=== PATIENT | female | born 1955 | race Caucasian/White ===

== ENCOUNTER → 2016-12-17 | Outpatient (CLI) | payer BC ==
--- NOTE | 2016-12-17 11:53 | BD ---
EXAMINATION TYPE: MG DEXA axial skeleton. DATE OF EXAM: 12/17/2016 COMPARISON: NONE CLINICAL HISTORY: N95.1 POST MENOPAUSAL SYMPTOMS Height: 60.2 IN Weight: 142 LBS FRAX RISK QUESTIONS: Alcohol (3 or more units per day): NO Family History (Parent hip fracture): NO Glucocorticoids (More than 3mos): NO (Ex: prednisone, prednisolone, methylprednisolone, dexamethasone, and hydrocortisone). History of Fracture in Adulthood: NO Secondary Osteoporosis: 1. Type 1 Diabetes: NO 2. Hyperthyroidism: NO 3. Menopause before 45: NO AGE 51 4. Malnutrition: NO 5. Chronic liver disease: NO Rheumatoid Arthritis: NO Current Tobacco Use: NO RISK FACTORS HISTORY OF: Active: YES Diet low in dairy products/other sources of calcium: YES Postmenopausal woman: AGE 51 MEDICATIONS: Additional Medications: CALCIUM, VIT D,CITALOPRAM, NEXIUM, FISH OIL, ONE A DAY VIT, B12 EXAM MEASUREMENTS: Bone mineral densitometry was performed using the LoiLo System. Bone mineral density as measured about the Lumbar spine is: ----- L1-L4(G/cm2): 0.966 T Score Values are as follows: ----- L2: -1.6 ----- L3: -2.0 ----- L4: -1.8 ----- L1-L4: -1.8 Bone mineral density has: Decreased -14.3% since study of: 07/28/2006 Bone mineral density about the R hip (g/cm2): 0.867 Bone mineral density about the L hip (g/cm2): 0.869 T Score values are as follows: -----R Neck: -1.2 -----L Neck: -1.2 -----R Total: 0.2 -----L Total: 0.7 Bone mineral density has: Increased 1.3% since study of: IMPRESSION: Osteopenia about the lumbar spine. NOTE: T-SCORE=SD OF THE YOUNG ADULT MEAN.
== END | disposition home or self-care (01) ==
LOC: RADBDWWP 07:52
PROVIDERS: ATTEND Obstetrics & Gynecology
DX: M85.88 Other specified disorders of bone density and structure, other site (principal); N95.1 Menopausal and female climacteric states
CPT/HCPCS: 77080

== ENCOUNTER → 2017-02-11 | Outpatient (CLI) | payer BC | LOC: LABWHC1 14:38 | PROVIDERS: ATTEND Physician Assistant | DX: R07.9 Chest pain, unspecified (principal) | CPT/HCPCS: 36415; 93005 ==

== ENCOUNTER → 2018-01-08 | Outpatient (CLI) | payer OTHER ==
--- NOTE | 2018-01-08 22:20 | CONS ---
CONSULTATION DATE OF SERVICE: 01/08/2018 This patient is a 62-year-old lady who has been evaluated in [facility] for significant excessive daytime sleepiness, which include sleepiness while she drives. HISTORY OF PRESENT ILLNESS/SLEEP-WAKE EVALUATION: Patient reports she has had her sleepiness for about 10 years. At present her sleep schedule is from 10 or 11 p.m. until 6 or 7 a.m. on weekdays and from around 11 p.m. until 7 or 7:30 a.m. on weekends. Usually no problems with falling asleep, although she has a TV set in the bedroom. She sleeps on her side of stomach position with her , who reports that she has snoring. The patient wakes up from sleep with episodes of grinding teeth, nocturia 2 times, positive history of episodes of sleeptalking. In the morning patient wakes up tired, has difficulties paying attention, falling asleep during the day, has problems with memory, concentration, depression, claustrophobia. [place] Sleepiness Scale is significantly increased at 19. Sometimes the patient takes naps with her grandchildren. If she has takes a nap, she feels refreshed, does not remember vivid dreams during naps. No history of hypnagogic hallucinations, sleep paralysis or cataplexy. No kicking at night. PAST MEDICAL HISTORY: Positive for depression and low level of vitamin D. PAST SURGICAL HISTORY: Appendectomy, tubal ligation. MEDICATIONS: 1. Citalopram. 2. Esomeprazole. 3. Vitamin B12. 4. Vitamin D3. 5. Calcium supplement. 6. [place] fish probiotics. SOCIAL HISTORY: Negative for smoking. Alcohol consumption occasional. FAMILY HISTORY: Positive for narcolepsy in her son, heart problems, arthritis, snoring, pneumonia, headaches, mental illness, ulcers. REVIEW OF SYSTEMS: Awakenings from sleep, sleepiness during the day, including sleepiness while driving the car. PHYSICAL EXAMINATION: GENERAL: A pleasant 62-year-old lady without distress. VITAL SIGNS: BP 105/70, HR 71, RR 16, height 5-1/2, weight 145.2, body mass index 27.8, temperature 98.4, oxygen saturation at room air 94% HEENT: PERRLA, EOMI. Evaluation of oropharynx showed tongue protrudes midline. Extremely low position of soft palate. NECK: Supple. No JVD. Thyroid is not palpable. LUNGS: Clear to percussion and to auscultation. Good air exchange. No wheezing or rhonchi. HEART: S1, S2 regular. No murmurs, gallops or rubs. ABDOMEN: Slightly obese. EXTREMITIES: No clubbing or cyanosis. SPECIAL POLICE OFFICER: Awake, alert, and oriented X3. Cranial nerves 2 to 7 intact. There is no fasciculation or atrophy. noted. No focal deficits observed. IMPRESSION: 1. Snoring, multiple awakenings from sleep with nocturia, low position of soft palate, excessive daytime sleepiness; obstructive sleep apnea-hypopnea syndrome. 2. Significant excessive daytime sleepiness. [place] Sleepiness Scale is in very high range at 19. The patient feels sleepy while driving the car. She feels refreshed after naps. Differential diagnosis includes hypersomnia, including narcolepsy. 3. History of depression. 4. Status post appendectomy. 5. Status post tubal ligation. PLAN: 1. Polysomnography for evaluation of patient's breathing during sleep. 2. CPAP/BiPAP titration if sleep study confirms obstructive sleep apnea-hypopnea syndrome. 3. Preferable position during sleep on the side. 4. No driving if patient feels any sleepiness. 5. I will see patient for follow up visit to explain results of testing and following plan. 6. Multiple sleep latency test if sleep study is negative for obstructive sleep apnea- hypopnea syndrome. Thank you very much for referring this patient for consultation. Sincerely, Eliseo Euceda MD, PhD, FAASM Diplomat of [place] [employer] [place] [employer] Forming Roll Operator Heavy Duty of [facility] [place] MMODL / IJN: [id number] /
== END | disposition home or self-care (01) ==
LOC: SLEEP 14:18
PROVIDERS: ATTEND Internal Medicine
DX: G47.33 Obstructive sleep apnea (adult) (pediatric) (principal); F32.9 Major depressive disorder, single episode, unspecified; Z90.89 Acquired absence of other organs; Z98.890 Other specified postprocedural states; Z79.899 Other long term (current) drug therapy
CPT/HCPCS: 99211

== ENCOUNTER → 2018-03-11 | Outpatient (CLI) | payer OTHER ==
--- NOTE | 2018-03-11 15:38 | PN ---
PROGRESS NOTE DATE OF SERVICE: 03/11/2018 A 62-year-old lady who has been followed in the Sleep Center to discuss results of diagnostic sleep study and multiple sleep latency test and following plan. I discussed results of sleep studies with patient and family details. Diagnostic polysomnogram did not show any significant respiratory abnormalities. Following multiple sleep latency tests showed pathological sleepiness with a mean sleep latency of 3.4 minutes, but without any sleep onset REM period. Patient continued to feel sleepiness during the day, especially afternoon which may create risk for driving. Short [place] Sleepiness Scale today is 18 which is significantly above normal range. MEDICATIONS: Citalopram, esomeprazole, vitamin supplement, probiotics. PHYSICAL EXAM: Patient in no distress. BP 102/66, HR 65, RR 16, weight 146.2 pounds, height 5, 0, body mass index 28.5, oxygen saturation at room air 95%. HEENT PERRLA, EOMI, evaluation of oropharynx showed tongue protrudes midline. Neck Supple, no JVD. Thyroid is not palpable. LUNGS Clear to percussion and to auscultation. Good air exchange. No wheezing or rhonchi. HEART S1, S2 regular. No murmurs, gallops, or rubs. ABDOMEN Soft and nontender. Bowel sounds are present. No organomegaly appreciated. EXTREMITIES No clubbing or cyanosis. PEST CONTROL SUPERVISOR Awake, alert, and oriented X3. Cranial nerves 2 to 7 intact. There is no fasciculation or atrophy. noted. No focal deficits observed. IMPRESSION: 1. No significant respiratory abnormalities during sleep. 2. Patient continued to have symptoms of significant excessive daytime sleepiness. [place] Sleepiness Scale increased to 18. Multiple sleep latency test confirmed sleepiness. Mean sleep latency only 3.4 minutes. No sleep onset REM periods have been documented, but most probably diagnosis is narcolepsy. 3. History of depression. 4. Status post appendectomy. 5. Status post tubal ligation. PLAN: 1. I will start patient on treatment with Adderall 5 mg in the morning and early afternoon. Sleep hygiene with regular time in bed for at least 8 hours. 2. Precautions related to driving. No driving if feeling sleepiness. 3. Daytime naps permitted. 4. HLA profile for narcolepsy. Thank you very much for allowing me to participate in the management of your patient. Sincerely, Eliseo Euceda MD, PhD, FAASM Diplomat of [place] [employer] [place] [employer] Placement Manager of [facility] [place] MMODL / MARY LOUN: [id number] /
== END | disposition home or self-care (01) ==
LOC: SLEEP 13:37
PROVIDERS: ATTEND Internal Medicine
DX: G47.10 Hypersomnia, unspecified (principal); F32.9 Major depressive disorder, single episode, unspecified; Z90.89 Acquired absence of other organs; Z79.899 Other long term (current) drug therapy; Z98.890 Other specified postprocedural states

== ENCOUNTER → 2018-07-15 | Outpatient (CLI) | payer OTHER ==
--- NOTE | 2018-07-15 14:11 | MM ---
Reason for exam: screening (asymptomatic). Last mammogram was performed 2 years and 4 months ago. History: Patient is postmenopausal. Took hormonal contraceptives for 20 years. Physical Findings: A clinical breast exam by your physician is recommended on an annual basis and results should be correlated with mammographic findings. MG 3D Screening Mammo W/Cad Bilateral CC and MLO view(s) were taken. Prior study comparison: March 29, 2016, bilateral MG screening mammo w CAD. July 13, 2014, bilateral MG screening mammo w CAD. The breast tissue is heterogeneously dense. This may lower the sensitivity of mammography. There are benign appearing round vascular calcifications bilaterally. There is no discrete abnormality. ASSESSMENT: Benign, BI-RAD 2 RECOMMENDATION: Routine screening mammogram of both breasts in 1 year.
== END ==
LOC: RADMAMWWP 07:14
PROVIDERS: ATTEND Family Medicine
DX: Z12.31 Encounter for screening mammogram for malignant neoplasm of breast (principal)
CPT/HCPCS: 77063; 77067

== ENCOUNTER → 2018-12-30 | Outpatient (CLI) | payer OTHER ==
--- NOTE | 2018-12-30 07:54 | US ---
EXAMINATION TYPE: US pelvis complete transvag DATE OF EXAM: 12/30/2018 COMPARISON: NONE CLINICAL HISTORY: Rt lower Quad R10.31. Generalized pelvic pain. Hx ovarian cysts per patient when s he was younger. TECHNIQUE: Transvaginal (TV) and Transabdominal (TA) . Transabdominal sonographic images of the pel vis were acquired. Transvaginal sonographic images were medically necessary to better assess the fol lowing anatomy: Uterus, endometrium, ovaries Date of LMP: DATA WAREHOUSE DEVELOPER, EXAM MEASUREMENTS: Uterus: 5.0 x 2.9 x 2.3 cm Endometrial Stripe: 0.3 cm Right Ovary: 1.9 x 1.5 x 1.1 cm 1. Uterus: Anteverted Heterogenous. No prominent masses or lesions visualized. 2. Endometrium: wnl 3. Right Ovary: wnl 4. Left Ovary: Obscured by overlying bowel gas 5. Bilateral Adnexa: wnl 6. Posterior cul-de-sac: no free fluid IMPRESSION: No significant abnormality appreciated to account for the patient's symptoms.
== END | disposition home or self-care (01) ==
LOC: RADUSWWP 07:17
PROVIDERS: ATTEND Obstetrics & Gynecology
DX: R10.31 Right lower quadrant pain (principal)
CPT/HCPCS: 76830; 76856

== ENCOUNTER → 2019-03-17 | Outpatient (CLI) | payer OTHER ==
--- NOTE | 2019-03-17 08:28 | CT ---
EXAMINATION TYPE: CT brain wo con DATE OF EXAM: 03/17/2019 HISTORY: Headaches CT DLP: 999.8 mGycm. Automated Exposure Control for Dose Reduction was Utilized. TECHNIQUE: CT scan of the head is performed without contrast. COMPARISON: CT brain January 22, 2012.. FINDINGS: There is no acute intracranial hemorrhage or midline shift identified. Ventricles and sul ci are within normal limits in size for patient's age. Casas-white matter differentiation is fairly we ll-maintained. The globes are intact and the visualized sinuses are clear. IMPRESSION: No acute intracranial hemorrhage or midline shift. Unremarkable study.
== END | disposition home or self-care (01) ==
LOC: RADCTMAIN 07:54
PROVIDERS: ATTEND Family Medicine
DX: R51 Headache (principal)
CPT/HCPCS: 70450

== ENCOUNTER 2019-03-23 13:14 | Emergency (ER) | payer OTHER ==
[2019-03-23 13:33] VITALS: TEMP 98
[2019-03-23] MEDS ORDERED: SODIUM CHLORIDE 0.9% 1,000 ML IV STA (13:49)
[2019-03-23] MEDS ORDERED: diphenhydrAMINE 50 MG/ML 1 ML VIAL IVP STA (13:49)
[2019-03-23] MEDS ORDERED: METOCLOPRAMIDE 5 MG/ML 2 ML VIAL IVP STA (13:49)
[2019-03-23] MEDS ORDERED: MORPHINE SULFATE 4 MG/ML SYRINGE IV STA (13:49)
--- NOTE | 2019-03-23 14:30 | ED ---
Headache HPI - General Chief Complaint: Headache Stated Complaint: headache, neck pain Time Seen by Provider: 03/23/19 13:35 Source: RN notes reviewed, old records reviewed Mode of arrival: wheelchair Limitations: no limitations - History of Present Illness Initial Comments: Patient is a 63-year-old female presents today for chief complaint of neck pain and frequent headaches starting since January. She reports that she's been treated for migraine headaches. She does report some minimal relief when she has imitrex. She states that this pain seems to be unrelenting, despite tylenol, motrin and imitrex. She states she had a CAT scan without contrast earlier this month for her headache, as well as was only done of her brain. Patient states that it was reviewed to be normal. Patient reports that she's been having significant neck pain. She denies any radiation of pain or numbness or tingling down her arms. Patient states that she has a shooting pain going from the back of her head towards her scalp. She states that she went to orthopedics and had a massage of her neck. She states after that occurred she started to have some vomiting. She is placed in a soft collar there. - Related Data Home Medications Medication Instructions Recorded Confirmed Citalopram Hydrobromide 20 mg PO DAILY 07/23/14 06/12/15 [Citalopram HBr] Esomeprazole Magnesium [NexIUM] 40 mg PO BID 07/23/14 06/12/15 Aspirin [Adult Low Dose Aspirin EC] 81 mg PO Q2D 06/07/15 06/12/15 Calcium Carbonate [Calcium] 600 mg PO DAILY 06/07/15 06/12/15 Cholecalciferol [Vitamin D3] 1,000 unit PO DAILY 06/07/15 06/12/15 Multivitamins, Thera [Multivitamin] 1 tab PO DAILY 06/07/15 06/12/15 Previous Rx's Medication Instructions Recorded Acetaminophen with Codeine 1 tab PO Q6H PRN 3 Days #12 tab 03/23/19 [Tylenol w/codeine #3] Cyclobenzaprine [Flexeril] 10 mg PO TID #15 tab 03/23/19 Dexamethasone 0.75 mg PO DAILY #12 tab 03/23/19 Diazepam [Valium] 2 mg PO TID PRN 3 Days #9 tab 03/23/19 Allergies Allergy/AdvReac Type Severity Reaction Status Date / Time No Known Allergies Allergy Verified 06/12/15 12:51 Review of Systems ROS Statement: Those systems with pertinent positive or pertinent negative responses have been documented in the HPI. ROS Other: All systems not noted in ROS Statement are negative. Past Medical History Past Medical History: Chest Pain / Angina, GERD/Reflux, GI Bleed History of Any Multi-Drug Resistant Organisms: None Reported Past Surgical History: Tubal Ligation Past Anesthesia/Blood Transfusion Reactions: No Reported Reaction Past Psychological History: No Psychological Hx Reported Smoking Status: Never smoker Past Alcohol Use History: None Reported Past Drug Use History: None Reported - Past Family History Mother Additional Family Medical History / Comment(s): pulmonary fibrosis- Brother(s) Additional Family Medical History / Comment(s): pulmonary fibrosis with lung transplant General Exam - General Exam Comments Initial Comments: 63-year-old female. Alert and oriented 3. Limitations: no limitations General appearance: alert, in no apparent distress Head exam: Present: atraumatic, normocephalic, normal inspection Eye exam: Present: normal appearance, PERRL, EOMI. Absent: scleral icterus, conjunctival injection, periorbital swelling ENT exam: Present: normal exam, mucous membranes moist Neck exam: Present: normal inspection, full ROM (Patient has some posterior cervical spine tenderness to the occiput. Patient has right left paraspinal tenderness as well.). Absent: tenderness, meningismus, lymphadenopathy Respiratory exam: Present: normal lung sounds bilaterally. Absent: respiratory distress, wheezes, rales, rhonchi, stridor Cardiovascular Exam: Present: regular rate, normal rhythm, normal heart sounds. Absent: systolic murmur, diastolic murmur, rubs, gallop, clicks GI/Abdominal exam: Present: soft, normal bowel sounds. Absent: distended, tenderness, guarding, rebound, rigid Extremities exam: Present: normal inspection, full ROM, normal capillary refill. Absent: tenderness, pedal edema, joint swelling, calf tenderness Back exam: Present: normal inspection Neurological exam: Present: alert, oriented X3, CN II-XII intact Psychiatric exam: Present: normal affect, normal mood Skin exam: Present: warm, dry, intact, normal color. Absent: rash Course Vital Signs 03/23/19 03/23/19 13:30 15:32 Temperature 98.0 F Pulse Rate 85 71 Respiratory 18 16 Rate Blood Pressure 116/78 112/67 O2 Sat by Pulse 96 99 Oximetry Medical Decision Making - Medical Decision Making Patient 63-year-old female presents emergency department today with progressive headache and neck pain for the past month. Patient of fever or chills. Denies any neurological deficits. Patient reports that she did have a syncopal episode and vomited after a neck massage and physical therapy yesterday. Patient did have a CT of her brain earlier this month which was negative. Discussed at this time for concern for a pinched nerve or other etiologies of her brain. Patient underwent a CT angios head and neck. This was negative for aneurysm or dissection. Patient labwork was reviewed. Normal white blood cell count. Did have an elevated CRP likely due to inflammatory process muscle spasms. She is no fever at this time. Patient has no temporal tenderness and no visual changes. I discussed treatment at this time with telemetry medicine and muscle axis for likely pinched nerve and discussed she can follow-up with neurology. She has an appointment on April [address] Matos. Discussed case with Dr. Hassan. - Lab Data Result diagrams: 03/23/19 14:16 03/23/19 14:16 Lab Results 03/23/19 03/23/19 Range/Units 14:16 14:16 WBC 3.8 (3.8-10.6) k/uL RBC 3.09 L (3.80-5.40) m/uL Hgb 10.6 L (11.4-16.0) gm/dL Hct 30.3 L (34.0-46.0) % MCV 98.1 (80.0-100.0) fL MCH 34.3 (25.0-35.0) pg MCHC 35.0 (31.0-37.0) g/dL RDW 13.2 (11.5-15.5) % Plt Count 109 L (150-450) k/uL Neutrophils % (Manual) 47 % Band Neutrophils % 1 % Lymphocytes % (Manual) 23 % Monocytes % (Manual) 24 % Eosinophils % (Manual) 4 % Basophils % (Manual) 2 % Neutrophils # (Manual) 1.80 (1.3-7.7) k/uL Lymphocytes # (Manual) 0.87 L (1.0-4.8) k/uL Monocytes # (Manual) 0.91 (0-1.0) k/uL Eosinophils # (Manual) 0.15 (0-0.7) k/uL Basophils # (Manual) 0.08 (0-0.2) k/uL Nucleated RBCs 0 (0-0) /100 WBC Manual Slide Review Performed Sodium 138 (137-145) mmol/L Potassium 4.2 (3.5-5.1) mmol/L Chloride 102 (98-107) mmol/L Carbon Dioxide 28 (22-30) mmol/L Anion Gap 8 mmol/L BUN 14 (7-17) mg/dL Creatinine 0.66 (0.52-1.04) mg/dL Est GFR (CKD-EPI)AfAm >90 (>60 ml/min/1.73 sqM) Est GFR (CKD-EPI)NonAf >90 (>60 ml/min/1.73 sqM) Glucose 86 (74-99) mg/dL Calcium 9.2 (8.4-10.2) mg/dL Total Bilirubin 0.7 (0.2-1.3) mg/dL AST 31 (14-36) U/L ALT 25 (4-34) U/L Alkaline Phosphatase 83 (38-126) U/L C-Reactive Protein 152.7 H (<10.0) mg/L Total Protein 7.6 (6.3-8.2) g/dL Albumin 4.0 (3.5-5.0) g/dL - Radiology Data Radiology results: report reviewed Data CT angiogram of the neck. Negative CT angiogram of the brain. Disposition Clinical Impression: Neck muscle spasm, Headache Disposition: HOME SELF-CARE Condition: Good Instructions (If sedation given, give patient instructions): Muscle Spasm (ED) Additional Instructions: Patient advised to take the medications as prescribed. Follow-up with your primary care physician and neurology as discussed. Return to the emergency department if any alarming signs or symptoms occur such as decreased motor function of arms. Prescriptions: Dexamethasone 0.75 mg PO DAILY #12 tab Cyclobenzaprine [Flexeril] 10 mg PO TID #15 tab Acetaminophen with Codeine [Tylenol w/codeine #3] 1 tab PO Q6H PRN 3 Days #12 tab PRN Reason: Pain Diazepam [Valium] 2 mg PO TID PRN 3 Days #9 tab PRN Reason: Spasms Is patient prescribed a controlled substance at d/c from ED?: Yes If prescribed controlled substance>3 days was MAPS reviewed?: Prescribed <3 Days If opioid is for acute pain is fill amount 7 days or less?: Yes If Rx opioid, was Start Talking consent form obtained?: Yes Referrals: Mal Mendez DO [Primary Care Provider] - 1-2 days Time of Disposition: 16:17
[2019-03-23 14:31] LABS: HCT 30.3 % (34.0-46.0); HGB 10.6 gm/dL (11.4-16.0); MCH 34.3 pg (25.0-35.0); MCV 98.1 fL (80.0-100.0); Mean Platelet Volume 8.3; Platelet Count 109 k/uL (150-450); RBC 3.09 m/uL (3.80-5.40); RDW 13.2 % (11.5-15.5); WBC 3.8 k/uL (3.8-10.6)
[2019-03-23 14:45] LABS: ALT 25 U/L (4-34); AST 31 U/L (14-36); African American GFR (CKD) >90 (>60 ml/min/1.73 sqM); Alkaline Phosphatase 83 U/L (38-126); Anion Gap 8 mmol/L; Blood Urea Nitrogen 14 mg/dL (7-17); Calcium 9.2 mg/dL (8.4-10.2); Carbon Dioxide 28 mmol/L (22-30); Chloride 102 mmol/L (98-107); Glucose 86 mg/dL (74-99); Non-African American GFR(CKD) >90 (>60 ml/min/1.73 sqM); Potassium 4.2 mmol/L (3.5-5.1); Sodium 138 mmol/L (137-145); Total Bilirubin 0.7 mg/dL (0.2-1.3); Total Protein 7.6 g/dL (6.3-8.2)
[2019-03-23 15:00] LABS: C Reactive Protein 152.7 mg/L (<10.0)
[2019-03-23 15:10] LABS: Band Neutrophils % 1 %; Basophils # (M) 0.08 k/uL (0-0.2); Eosinophils # (M) 0.15 k/uL (0-0.7); Lymphocytes # (M) 0.87 k/uL (1.0-4.8); Monocytes # (M) 0.91 k/uL (0-1.0); Neutrophils % (M) 47 %; Nucleated Red Blood Cells 0 /100 WBC (0-0); Total Cells Counted 200
[2019-03-23 15:43] VITALS: RESP 16
--- NOTE | 2019-03-23 15:56 | CT ---
EXAMINATION TYPE: CT angio head neck DATE OF EXAM: 03/23/2019 COMPARISON: None HISTORY: Neck pain and headache x 1 month, getting progressively worse. CT DLP: 1480.2 mGycm Automated exposure control for dose reduction was used. CONTRAST: Performed without and with IV Contrast, patient injected with 65 mL of Isovue 370. There are 3-D post processed images. Noncontrast images show normal ventricles and sulci. There is minimal thalamic calcification. There i s no midline shift. There is no sign of intracranial hemorrhage. There is normal branching pattern of the great vessels on the aortic arch. There is bilateral arteria l flow in the subclavian arteries. There is arterial flow in the common internal and external carotid arteries bilaterally. There is wide patency of the carotid arteries. There is bilateral arterial kojo w in the vertebral arteries which are widely patent. There is arterial flow in the anterior middle and posterior cerebral arteries. There is no evidence o f intracranial aneurysm or neovascularity. There is no evidence of hemodynamic stenosis. There is art erial flow in the vertebrobasilar artery system. There is normal contrast opacification of the venous sinuses. There is no mass effect. IMPRESSION: Negative CT angiogram of the neck. Negative CT angiogram of the brain.
[2019-03-23] MEDS ORDERED: DEXAMETHASONE SOD PHOSPHATE 10 MG/ML 1 ML VIAL IV STA (16:08)
[2019-03-23] MEDS ORDERED: DIAZEPAM 5 MG/ML 2 ML INJ IVP STA (16:08)
[2019-03-23 17:10] VITALS: BP 117/71; PULSE 70
== END 2019-03-23 17:09 | disposition home or self-care (01) ==
LOC: EC 13:14
DX: M62.838 Other muscle spasm (principal); R51 Headache; R11.10 Vomiting, unspecified; R79.82 Elevated C-reactive protein (CRP); K21.9 Gastro-esophageal reflux disease without esophagitis; Z79.82 Long term (current) use of aspirin; Z79.899 Other long term (current) drug therapy
CPT/HCPCS: 36415; 93005; 80053; 85025; 86140; 70496; 70498; 99285; 96374; 96375 ×4; 96361; J2270; J1200; J1100; J2765; J3360; Q9967

== ENCOUNTER → 2019-03-29 | Outpatient (CLI) | payer OTHER ==
--- NOTE | 2019-03-29 15:46 | US ---
EXAMINATION TYPE: US venous doppler duplex UE LT DATE OF EXAM: 03/29/2019 COMPARISON: NONE CLINICAL HISTORY: M79.602 pain in upper left limb. pain left arm, recent IV left antecubital fossa, r edness and edema left upper arm SIDE PERFORMED: left Left Arm: No evidence of DVT. Superficial thrombus left cephalic vein Grayscale, color doppler, spectral doppler imaging performed of the deep veins of the left upper extr emity. There is normal flow, compressibility and vascular waveforms. IMPRESSION: No acute DVT left upper extremity. Acute superficial thrombus involving the left cephalic vein may be product of recent peripheral IV.
== END | disposition home or self-care (01) ==
LOC: LABWHC1 15:02
PROVIDERS: ATTEND Family Medicine
DX: I82.612 Acute embolism and thrombosis of superficial veins of left upper extremity (principal)

== ENCOUNTER 2019-04-01 14:01 | Emergency (ER) | payer OTHER ==
[2019-04-01] MEDS ORDERED: ACETAMINOPHEN TAB 325 MG TAB PO STA (16:11)
[2019-04-01 16:51] LABS: Appearance,Urine Clear (Clear); Bilirubin,Urine Negative (Negative); Blood,Urine Negative (Negative); Color,Urine Yellow; Glucose,Urine (UA) Negative (Negative); Ketones,Urine Negative (Negative); Leukocyte Esterase,Urine Negative (Negative); Nitrite,Urine Negative (Negative); Protein,Urine Trace (Negative); Specific Gravity,Urine 1.012 (1.001-1.035)
--- NOTE | 2019-04-01 16:54 | XR ---
EXAMINATION TYPE: XR knee 4V LT DATE OF EXAM: 04/01/2019 COMPARISON: NONE HISTORY: Knee pain and swelling TECHNIQUE: 4 views FINDINGS: There is some narrowing of the medial joint space. I see no fracture nor dislocation. There is no definite joint effusion. There is anterior soft tissue swelling. IMPRESSION: Mild narrowing of the medial joint space. No fracture seen. There is prepatellar soft tissue swelling consistent with patellar bursitis.
[2019-04-01 17:06] VITALS: BP 107/67; PULSE 94; RESP 18; TEMP 99.4
[2019-04-01 17:27] LABS: ALT 67 U/L (4-34); AST 57 U/L (14-36); African American GFR (CKD) >90 (>60 ml/min/1.73 sqM); Albumin 3.6 g/dL (3.5-5.0); Alkaline Phosphatase 130 U/L (38-126); Anion Gap 8 mmol/L; Blood Urea Nitrogen 12 mg/dL (7-17); Calcium 8.9 mg/dL (8.4-10.2); Carbon Dioxide 25 mmol/L (22-30); Chloride 101 mmol/L (98-107); Glucose 124 mg/dL (74-99); Non-African American GFR(CKD) >90 (>60 ml/min/1.73 sqM); Potassium 4.2 mmol/L (3.5-5.1); Sodium 134 mmol/L (137-145); Total Bilirubin 0.6 mg/dL (0.2-1.3)
[2019-04-01 17:39] LABS: C Reactive Protein 234.1 mg/L (<10.0)
[2019-04-01 17:41] LABS: HCT 28.1 % (34.0-46.0); HGB 9.7 gm/dL (11.4-16.0); MCH 34.3 pg (25.0-35.0); MCHC 34.6 g/dL (31.0-37.0); MCV 99.1 fL (80.0-100.0); Macrocytosis Slight; Mean Platelet Volume 8.8; Platelet Count 88 k/uL (150-450); RBC 2.84 m/uL (3.80-5.40); RDW 14.1 % (11.5-15.5); WBC 5.1 k/uL (3.8-10.6)
[2019-04-01 17:56] LABS: Band Neutrophils % 1 %; Lymphocytes # (M) 0.77 k/uL (1.0-4.8); Monocytes # (M) 0.77 k/uL (0-1.0); Neutrophils % (M) 63 %; Nucleated Red Blood Cells 0 /100 WBC (0-0); Poikilocytosis (M) Present; Reactive Lymphocytes Present; Total Cells Counted 100; Toxic Vacuolation Present
[2019-04-01 18:23] LABS: Erythrocyte Sedimentation Rate 119 mm/hr (0-20)
[2019-04-01] MEDS ORDERED: SULFAMETH-TMP DS STARTER PACK 2 TAB BTL PO STA (18:58)
[2019-04-01] MEDS ORDERED: SULFAMETHOX-TMP 800-160MG 1 EACH TAB PO STA (18:58)
--- NOTE | 2019-04-01 19:16 | ED ---
General Adult HPI - General Chief complaint: Extremity Problem,Nontraumatic Stated complaint: poss sepsis Time Seen by Provider: 04/01/19 15:18 Source: patient, RN notes reviewed, old records reviewed Mode of arrival: ambulatory Limitations: no limitations - History of Present Illness Initial comments: 63-year-old female patient presents to ED for chief complaint of pain for left knee for 2 days. Patient reports that she has pain in the anterior aspect of her left knee. Also reports some redness and swelling at this region. Describes it as around the patella. Reports that she felt as if she was slightly warm earlier. Denies any other systemic symptoms. Patient is still ambulatory. Able to bear weight. Systemic: Pt denies fatigue, fever/chills, rash. Pt denies weakness, night sweats, weight loss. Neuro: Pt denies headache, visual disturbances, syncope or pre-syncope. HEENT: Pt denies ocular discharge or irritation, otalgia, rhinorrhea, pharyngitis or notable lymphadenopathy. Cardiopulmonary: Pt denies chest pain, SOB, heart palpitations, dyspnea on exertion. Abdominal/GI: Pt denies abdominal pain, n/v/d. : Pt denies dysuria, burning w/ urination, frequency/urgency. Denies new onset urinary or bowel incontinence. MSK: Pt denies myalgia, loss of strength or function in extremities. Neuro: Pt denies new onset weakness, paresthesias. - Related Data Home Medications Medication Instructions Recorded Confirmed Citalopram Hydrobromide 20 mg PO DAILY 07/23/14 06/12/15 [Citalopram HBr] Esomeprazole Magnesium [NexIUM] 40 mg PO BID 07/23/14 06/12/15 Aspirin [Adult Low Dose Aspirin EC] 81 mg PO Q2D 06/07/15 06/12/15 Calcium Carbonate [Calcium] 600 mg PO DAILY 06/07/15 06/12/15 Cholecalciferol [Vitamin D3] 1,000 unit PO DAILY 06/07/15 06/12/15 Multivitamins, Thera [Multivitamin] 1 tab PO DAILY 06/07/15 06/12/15 Previous Rx's Medication Instructions Recorded Acetaminophen with Codeine 1 tab PO Q6H PRN 3 Days #12 tab 03/23/19 [Tylenol w/codeine #3] Cyclobenzaprine [Flexeril] 10 mg PO TID #15 tab 03/23/19 Dexamethasone 0.75 mg PO DAILY #12 tab 03/23/19 Diazepam [Valium] 2 mg PO TID PRN 3 Days #9 tab 03/23/19 Sulfamethox-Tmp 800-160Mg [Bactrim 1 tab PO Q12HR 14 Days #28 tab 04/01/19 DS 800-160 mg] Allergies Allergy/AdvReac Type Severity Reaction Status Date / Time No Known Allergies Allergy Verified 06/12/15 12:51 Review of Systems ROS Statement: Those systems with pertinent positive or pertinent negative responses have been documented in the HPI. ROS Other: All systems not noted in ROS Statement are negative. Past Medical History Past Medical History: Chest Pain / Angina, GERD/Reflux, GI Bleed History of Any Multi-Drug Resistant Organisms: None Reported Past Surgical History: Tubal Ligation Past Anesthesia/Blood Transfusion Reactions: No Reported Reaction Past Psychological History: No Psychological Hx Reported Smoking Status: Never smoker Past Alcohol Use History: None Reported Past Drug Use History: None Reported - Past Family History Mother Additional Family Medical History / Comment(s): pulmonary fibrosis- Brother(s) Additional Family Medical History / Comment(s): pulmonary fibrosis with lung transplant General Exam - General Exam Comments Initial Comments: Constitutional: NAD, AOX3, Pt has pleasant affect. HEENT: NC/AT, trachea midline, neck supple, no lymphadenopathy. Posterior phar ynx non erythematous, without exudates. External ears appear normal, without discharge. Mucous membranes moist. Eyes PERRLA, EOM intact. There is no scleral icterus. No pallor noted. Cardiopulmonary: RRR, no murmurs, rubs or gallops, no JVD noted. Lungs CTAB in anterior and posterior brady. No peripheral edema. Abdominal exam: Abdomen soft and non-distended. Abdomen non-tender to palpation in all 4 quadrants. Bowel sounds active in LLQ. No hepatosplenomegaly. No ecchymosis Neuro: CN II-XII grossly intact. No nuchal rigidity. No raccon eyes, no jimenez sign, no hemotympanum. No cervical spinal tenderness. MSK: Small amount of erythema tenderness to anterior left knee patellar region. Full active range of motion is intact without difficulty. Ambulatory without difficulty. No posterior calf tenderness bilaterally, homans sign negative bilaterally. Posterior tibialis and radial pulse +2 bilaterally. Sensation intact in upper and lower extremities. Full active ROM in upper and lower e xtremities, 5/5 stregnth. Limitations: no limitations Course Vital Signs 04/01/19 04/01/19 04/01/19 14:13 17:04 19:08 Temperature 100.4 F H 99.4 F 99.4 F Pulse Rate 98 94 94 Respiratory 19 18 18 Rate Blood Pressure 108/69 107/67 107/67 O2 Sat by Pulse 98 95 95 Oximetry Medical Decision Making - Medical Decision Making 63-year-old female patient presents to ED for chief complaint of left knee pain and redness and swelling for 2 days. Patient vital signs are stable, afebrile. Physical exam displayed: Small amount of erythema tenderness to anterior left knee patellar region. Full active range of motion is intact without difficulty. Ambulatory without difficulty. Laboratory investigations revealed mild anemia and decreased platelets which are around baseline. No leukocytosis. Inflammatory mediators are elevated. Previous laboratory investigations reveal a possible baseline elevation. Urine and influenza are negative. Plain film of the knee displayed mild prepatellar soft tissue swelling consistent with p atellar bursitis. Case was discussed with orthopedic on-call Dr. Andre laboratory investigations and imaging findings who presents to him, he believes that this is a case of bursitis. Believes that is likely not infectious in nature however recommend using Bactrim prophylactically. Case was also discussed attending physician Dr. Lee who is in agreement with plan and reviewed imaging and laboratory investigations. Patient will be discharged with close observation follow-up with Dr. Fisher and PCP. - Lab Data Result diagrams: 04/01/19 17:05 04/01/19 17:05 Lab Results 04/01/19 04/01/19 04/01/19 Range/Units 16:29 16:40 17:05 WBC 5.1 (3.8-10.6) k/uL RBC 2.84 L (3.80-5.40) m/uL Hgb 9.7 L (11.4-16.0) gm/dL Hct 28.1 L (34.0-46.0) % MCV 99.1 (80.0-100.0) fL MCH 34.3 (25.0-35.0) pg MCHC 34.6 (31.0-37.0) g/dL RDW 14.1 (11.5-15.5) % Plt Count 88 L (150-450) k/uL Neutrophils % (Manual) 63 % Band Neutrophils % 1 % Lymphocytes % (Manual) 15 % Monocytes % (Manual) 15 % Eosinophils % (Manual) 4 % Basophils % (Manual) 2 % Neutrophils # (Manual) 3.20 (1.3-7.7) k/uL Lymphocytes # (Manual) 0.77 L (1.0-4.8) k/uL Monocytes # (Manual) 0.77 (0-1.0) k/uL Eosinophils # (Manual) 0.20 (0-0.7) k/uL Basophils # (Manual) 0.10 (0-0.2) k/uL Nucleated RBCs 0 (0-0) /100 WBC Manual Slide Review Performed Reactive Lymphocytes Present Toxic Vacuolation Present Poikilocytosis (manual Present Macrocytosis Slight ESR 119 H (0-20) mm/hr Sodium (137-145) mmol/L Potassium (3.5-5.1) mmol/L Chloride (98-107) mmol/L Carbon Dioxide (22-30) mmol/L Anion Gap mmol/L BUN (7-17) mg/dL Creatinine (0.52-1.04) mg/dL Est GFR (CKD-EPI)AfAm (>60 ml/min/1.73 sqM) Est GFR (CKD-EPI)NonAf (>60 ml/min/1.73 sqM) Glucose (74-99) mg/dL Plasma Lactic Acid Erasmo (0.7-2.0) mmol/L Calcium (8.4-10.2) mg/dL Total Bilirubin (0.2-1.3) mg/dL AST (14-36) U/L ALT (4-34) U/L Alkaline Phosphatase (38-126) U/L C-Reactive Protein (<10.0) mg/L Total Protein (6.3-8.2) g/dL Albumin (3.5-5.0) g/dL Urine Color Yellow Urine Appearance Clear (Clear) Urine pH 6.0 (5.0-8.0) Ur Specific [place] 1.012 (1.001-1.035) Urine Protein Trace H (Negative) Urine Glucose (UA) Negative (Negative) Urine Ketones Negative (Negative) Urine Blood Negative (Negative) Urine Nitrite Negative (Negative) Urine Bilirubin Negative (Negative) Urine Urobilinogen 2.0 (<2.0) mg/dL Ur Leukocyte Esterase Negative (Negative) Influenza Type A RNA Not Detected (Not Detectd) Influenza Type B (PCR) Not Detected (Not Detectd) 04/01/19 04/01/19 Range/Units 17:05 17:05 WBC (3.8-10.6) k/uL RBC (3.80-5.40) m/uL Hgb (11.4-16.0) gm/dL Hct (34.0-46.0) % MCV (80.0-100.0) fL MCH (25.0-35.0) pg MCHC (31.0-37.0) g/dL RDW (11.5-15.5) % Plt Count (150-450) k/uL Neutrophils % (Manual) % Band Neutrophils % % Lymphocytes % (Manual) % Monocytes % (Manual) % Eosinophils % (Manual) % Basophils % (Manual) % Neutrophils # (Manual) (1.3-7.7) k/uL Lymphocytes # (Manual) (1.0-4.8) k/uL Monocytes # (Manual) (0-1.0) k/uL Eosinophils # (Manual) (0-0.7) k/uL Basophils # (Manual) (0-0.2) k/uL Nucleated RBCs (0-0) /100 WBC Manual Slide Review Reactive Lymphocytes Toxic Vacuolation Poikilocytosis (manual Macrocytosis ESR (0-20) mm/hr Sodium 134 L (137-145) mmol/L Potassium 4.2 (3.5-5.1) mmol/L Chloride 101 (98-107) mmol/L Carbon Dioxide 25 (22-30) mmol/L Anion Gap 8 mmol/L BUN 12 (7-17) mg/dL Creatinine 0.66 (0.52-1.04) mg/dL Est GFR (CKD-EPI)AfAm >90 (>60 ml/min/1.73 sqM) Est GFR (CKD-EPI)NonAf >90 (>60 ml/min/1.73 sqM) Glucose 124 H (74-99) mg/dL Plasma Lactic Acid Erasmo 1.1 (0.7-2.0) mmol/L Calcium 8.9 (8.4-10.2) mg/dL Total Bilirubin 0.6 (0.2-1.3) mg/dL AST 57 H (14-36) U/L ALT 67 H (4-34) U/L Alkaline Phosphatase 130 H (38-126) U/L C-Reactive Protein 234.1 H (<10.0) mg/L Total Protein 7.0 (6.3-8.2) g/dL Albumin 3.6 (3.5-5.0) g/dL Urine Color Urine Appearance (Clear) Urine pH (5.0-8.0) Ur Specific [place] (1.001-1.035) Urine Protein (Negative) Urine Glucose (UA) (Negative) Urine Ketones (Negative) Urine Blood (Negative) Urine Nitrite (Negative) Urine Bilirubin (Negative) Urine Urobilinogen (<2.0) mg/dL Ur Leukocyte Esterase (Negative) Influenza Type A RNA (Not Detectd) Influenza Type B (PCR) (Not Detectd) Disposition Clinical Impression: Bursitis Disposition: HOME SELF-CARE Condition: Stable Instructions (If sedation given, give patient instructions): Knee Bursitis (ED) Additional Instructions: Taken antibiotics as directed. Follow-up with orthopedic consult primary care provider tomorrow. Return to ER if condition worsens in any way. Use ibuprofen 600 mg 3 times per day every 8 hours as needed. Prescriptions: Sulfamethox-Tmp 800-160Mg [Bactrim DS 800-160 mg] 1 tab PO Q12HR 14 Days #28 tab Is patient prescribed a controlled substance at d/c from ED?: No Referrals: Mal Mendez DO [Primary Care Provider] - 1-2 days Jayy Fisher DO [Medical Doctor] - 1-2 days
== END 2019-04-01 19:35 | disposition home or self-care (01) ==
LOC: EC 14:01
DX: M70.52 Other bursitis of knee, left knee (principal); D64.9 Anemia, unspecified; D69.6 Thrombocytopenia, unspecified; I20.9 Angina pectoris, unspecified; K21.9 Gastro-esophageal reflux disease without esophagitis; Z79.82 Long term (current) use of aspirin; Z79.899 Other long term (current) drug therapy
CPT/HCPCS: 36415; 80053; 85652; 83605; 85025; 86140; 81003; 87040; 87502; 73564; 99284; 96374; J0696

== ENCOUNTER → 2019-04-05 | Outpatient (CLI) | payer OTHER ==
--- NOTE | 2019-04-05 14:13 | US ---
EXAMINATION TYPE: US venous doppler duplex LE LT DATE OF EXAM: 04/05/2019 2:03 PM COMPARISON: NONE CLINICAL HISTORY: R60.0 EDEMA. SIDE PERFORMED: Left TECHNIQUE: The lower extremity deep venous system is examined utilizing real time linear array sonog ivri with graded compression, doppler sonography and color-flow sonography. VESSELS IMAGED: External Iliac Vein (EIV) Common Femoral Vein Deep Femoral Vein Greater Saphenous Vein * Femoral Vein Popliteal Vein Small Saphenous Vein * Proximal Calf Veins (* superficial vessels) Grayscale, color doppler, spectral doppler imaging performed of the deep veins of the left lower extr emity. There is normal flow, compressibility, vascular waveforms. Left Leg: Negative for DVT IMPRESSION: No sonographic evidence of deep venous thrombosis within the visualized portions of the left lower extremity.
== END | disposition home or self-care (01) ==
LOC: RADUSWWP 13:39
PROVIDERS: ATTEND Family Medicine
DX: R60.0 Localized edema (principal)

== ENCOUNTER → 2019-04-06 | Outpatient (CLI) | payer OTHER ==
[2019-04-06 11:39] LABS: Basophils # (A) 0.1 k/uL (0-0.2); Basophils % (A) 1 %; Eosinophils # (A) 0.2 k/uL (0-0.7); Eosinophils % (A) 3 %; HCT 26.2 % (34.0-46.0); HGB 8.7 gm/dL (11.4-16.0); Lymphocytes # (A) 0.8 k/uL (1.0-4.8); Lymphocytes % (A) 18 %; MCH 34.5 pg (25.0-35.0); MCHC 33.2 g/dL (31.0-37.0); MCV 103.8 fL (80.0-100.0); Macrocytosis Slight; Mean Platelet Volume 8.4; Monocytes # (A) 0.2 k/uL (0-1.0); Monocytes % (A) 5 %; Neutrophils # (A) 2.2 k/uL (1.3-7.7); Neutrophils % (A) 49 %; RBC 2.52 m/uL (3.80-5.40); RDW 14.2 % (11.5-15.5); WBC 4.5 k/uL (3.8-10.6)
[2019-04-06 11:40] LABS: Platelet Count 91 k/uL (150-450)
[2019-04-06 14:34] LABS: Erythrocyte Sedimentation Rate 129 mm/hr (0-20)
[2019-04-06 15:59] LABS: Uric Acid 3.3 mg/dL (2.9-7.7)
[2019-04-06 16:00] LABS: African American GFR (CKD) 92.2 (60.0-200.0); Anion Gap 7.6 mmol/L (4.00-12.00); BUN/Creat Ratio 17.5 Ratio (12.00-20.00); Calcium 8.8 mg/dL (8.7-10.3); Carbon Dioxide 28.4 mmol/L (21.6-31.8); Non-African American GFR(CKD) 79.6 (60.0-200.0); Potassium 4.3 mmol/L (3.5-5.5)
[2019-04-06 19:58] LABS: Cyclic Citrull Pep IgG Unit <0.5 U/mL; Cyclic Citrullinated Pep IgG NEGATIVE (NEGATIVE)
[2019-04-07 09:56] LABS: Angiotensin-1 Converting Enz. 46 U/L (8-52)
[2019-04-07 12:33] LABS: HLA B27 NEGATIVE
== END ==
LOC: LABWHC1 09:50
PROVIDERS: ATTEND Orthopaedic Surgery
DX: M25.562 Pain in left knee (principal); M17.12 Unilateral primary osteoarthritis, left knee; M54.5 Low back pain; M54.32 Sciatica, left side; M25.571 Pain in right ankle and joints of right foot
CPT/HCPCS: 36415; 80048; 82164; 82306; 82550; 83520; 84439; 84443; 84450; 84460; 84550; 85025; 85652; 86038; 86140; 86200; 86431; 86812

== ENCOUNTER 2019-04-22 06:21 | Inpatient (IN) | payer OTHER ==
[2019-04-22] MEDS ORDERED: NITROGLYCERIN OINT 1 INCH/GM PACKET TOPICAL STA (06:39)
[2019-04-22 06:45] LABS: Anisocytosis Slight; HCT 22.3 % (34.0-46.0); HGB 7.5 gm/dL (11.4-16.0); MCH 35.2 pg (25.0-35.0); MCHC 33.4 g/dL (31.0-37.0); MCV 105.2 fL (80.0-100.0); Macrocytosis Moderate; Mean Platelet Volume 8.9; RBC 2.12 m/uL (3.80-5.40); RDW 16.7 % (11.5-15.5); WBC 6.1 k/uL (3.8-10.6)
[2019-04-22 06:49] LABS: Platelet Count 41 k/uL (150-450)
[2019-04-22 06:56] LABS: ALT 17 U/L (4-34); AST 19 U/L (14-36); African American GFR (CKD) >90 (>60 ml/min/1.73 sqM); Albumin 2.9 g/dL (3.5-5.0); Alkaline Phosphatase 55 U/L (38-126); Anion Gap 4 mmol/L; Blood Urea Nitrogen 17 mg/dL (7-17); Calcium 8.8 mg/dL (8.4-10.2); Carbon Dioxide 34 mmol/L (22-30); Chloride 101 mmol/L (98-107); Glucose 77 mg/dL (74-99); Magnesium 2.2 mg/dL (1.6-2.3); Non-African American GFR(CKD) >90 (>60 ml/min/1.73 sqM); Potassium 3.9 mmol/L (3.5-5.1); Sodium 139 mmol/L (137-145); Total Bilirubin 0.4 mg/dL (0.2-1.3)
[2019-04-22 06:59] LABS: INR 0.9 (<1.2)
[2019-04-22 07:00] LABS: Prothrombin Time 9.6 sec (9.0-12.0)
[2019-04-22 07:01] LABS: D-Dimer 2.06 mg/L FEU (<0.60); Partial Thromboplastin Time 19.7 sec (22.0-30.0)
--- NOTE | 2019-04-22 07:04 | XR ---
EXAMINATION TYPE: XR chest 2V DATE OF EXAM: 04/22/2019 COMPARISON: Prior chest x-ray 07/13/2014 HISTORY: Chest pain TECHNIQUE: Frontal and lateral views of the chest are obtained. FINDINGS: Heart size may be accentuated by rotation. No evident pneumothorax or pleural effusion. Pe rihilar vascular indistinctness is noted. Lung volumes are low. Some patchy basilar density suspected . IMPRESSION: Expiratory rotated exam. Difficult to exclude interstitial edema, basilar atelectasis ve rsus possibly developing airspace disease. Follow-up as indicated.
--- NOTE | 2019-04-22 07:19 | ED ---
Chest Pain HPI - General Source: patient, EMS Mode of arrival: EMS Limitations: no limitations <Yessi Clinton - Last Filed: 04/22/19 14:27> <Cassandra Islas - Last Filed: 04/30/19 13:00> - General Chief Complaint: Chest Pain Stated Complaint: chest pain Time Seen by Provider: 04/22/19 06:22 - History of Present Illness Initial Comments: 63-year-old female presenting today for chief complaint of pain in the center of her chest x 2 hours. Patient states has history of rheumatoid arthritis otherwise no significant past medical history however the rheumatoid arthritis has significantly decreased her mobility. Patient states that she woke this morning with sharp chest pain, without radiation of the epigastric/sternal region. Patient states she has had for months on and off right knee and left foot swelling-which was attributed to the RA. Patient denies any known history of DVT or pulmonary embolism. Denies hemoptysis, nausea, vomiting, abdominal pain, fever, cough, URI symptoms, denies ripping tearing or back pain, denies dizziness or syncope. Patient denies any other complaints at this time. Patient was concerned when pain persisted and called EMS for transfer to the ER. Upon arrival BP stable, HR within acceptable limits. Patient states that she does have dark stools, and has been constipated. (Yessi Clniton) - Related Data Home Medications Medication Instructions Recorded Confirmed Citalopram Hydrobromide 20 mg PO DAILY 07/23/14 04/22/19 [Citalopram HBr] Esomeprazole Magnesium [NexIUM] 40 mg PO BID 07/23/14 04/22/19 Multivitamins, Thera [Multivitamin] 1 tab PO DAILY 06/07/15 04/22/19 Ascorbic Acid [Vitamin C] 1,000 mg PO DAILY 04/22/19 04/22/19 Calcium Carbonate/Vitamin D3 2 tab PO DAILY 04/22/19 04/22/19 [Calcium 600-Vit D3 800 [place]] Clobetasol Propionate [Temovate 1 applic TOPICAL BID PRN 04/22/19 04/22/19 0.05% Cream] Dextroamphetamine/Amphetamine 5 mg PO DAILY 04/22/19 04/22/19 [Adderall] Hydrocodone/Acetaminophen [[place] 1 tab PO TID PRN 04/22/19 04/22/19 7.5-325] Niacin 500 mg PO HS 04/22/19 04/22/19 [place]-3 Fatty Acids [[place]-3] 1,000 mg PO DAILY 04/22/19 04/22/19 Probiotic W/ Fiber 1 tab PO DAILY 04/22/19 04/22/19 Super B Complex W/ Biotin 1 tab PO DAILY 04/22/19 04/22/19 Triamcinolone 0.1% Cream [Kenalog 1 applic TOPICAL BID PRN 04/22/19 04/22/19 0.1% Cream] predniSONE [Deltasone] 20 mg PO HS 04/22/19 04/22/19 predniSONE [Deltasone] 40 mg PO QAM 04/22/19 04/22/19 Allergies Allergy/AdvReac Type Severity Reaction Status Date / Time No Known Allergies Allergy Verified 04/22/19 08:18 Review of Systems ROS Other: All systems not noted in ROS Statement are negative. <Yessi Clinton - Last Filed: 04/22/19 14:27> ROS Other: All systems not noted in ROS Statement are negative. <Cassandra Islas - Last Filed: 04/30/19 13:00> ROS Statement: Those systems with pertinent positive or pertinent negative responses have been documented in the HPI. EKG Findings - EKG Comments: EKG Findings:: Ventricular rate 75 bpm, ID interval 140 ms, QRS duration 80 ms, QT/QTC 390/444 ms. This is normal sinus. There is no ST elevation or depression noted. Low voltage is noted. EKG reviewd by attending Dr. Carr <Yessi Clinton - Last Filed: 04/22/19 14:27> Past Medical History Past Medical History: Chest Pain / Angina, GERD/Reflux, GI Bleed History of Any Multi-Drug Resistant Organisms: None Reported Past Surgical History: Tubal Ligation Past Anesthesia/Blood Transfusion Reactions: No Reported Reaction Past Psychological History: No Psychological Hx Reported Smoking Status: Never smoker Past Alcohol Use History: None Reported Past Drug Use History: None Reported - Past Family History Mother Additional Family Medical History / Comment(s): pulmonary fibrosis- Brother(s) Additional Family Medical History / Comment(s): pulmonary fibrosis with lung transplant Father Family Medical History: Dementia <Yessi Clinton - Last Filed: 04/22/19 14:27> General Exam Limitations: no limitations <Yessi Clinton - Last Filed: 04/22/19 14:27> - General Exam Comments Initial Comments: General: The patient is awake and alert, in no distress, appears pale Eye: +3 mm pupils are equal, round and reactive to light, extra-ocular movements are intact. No nystagmus. There is normal conjunctiva bilaterally. No signs of icterus. Ears, nose, mouth and throat: There are moist mucous membranes and no oral lesions. Neck: The neck is supple, there is no tenderness or JVD. Cardiovascular: There is a regular rate and rhythm. No murmur, rub or gallop is appreciated. Respiratory: Lungs are clear to auscultation, respirations are non-labored, breath sounds are equal. No wheezes, stridor, rales, or rhonchi. Gastrointestinal: Soft, non-distended, non-tender abdomen without masses or organomegaly noted. There is no rebound or guarding present. Musculoskeletal: Normal ROM, no tenderness. Strength 5/5. Sensation intact. Radial and DP pulses equal bilaterally 2+. Neurological: A&O x 3. CN II-XII intact grossly, There are no obvious motor or sensory deficits. Coordination appears grossly intact. Speech is normal. Skin: Skin is warm and dry and no rashes or lesions are noted. No LE edema noted. No calf pain to palpation. Psychiatric: Cooperative, appropriate mood & affect, normal judgment. (Yessi Clinton) Course Vital Signs 04/22/19 04/22/19 04/22/19 06:22 08:09 08:56 Temperature 98.5 F 98.7 F Pulse Rate 73 74 56 L Respiratory 18 20 24 Rate Blood Pressure 132/81 119/68 93/48 O2 Sat by Pulse 100 98 93 L Oximetry 04/22/19 04/22/19 04/22/19 10:17 10:49 13:57 Temperature Pulse Rate 60 62 79 Respiratory 20 20 16 Rate Blood Pressure 90/48 86/47 104/58 O2 Sat by Pulse 93 L 100 100 Oximetry Chest Pain MDM <Bridgett Clintonhan L - Last Filed: 04/22/19 14:27> <Cassandra Islas - Last Filed: 04/30/19 13:00> - MDM 63-year-old female presented for sharp chest pain CT negative for pulmonary embolism which is suspected given patient's immobility secondary to joint pain. Patient is currently seeing both rheumatology as well as Dr. voss for investigation of chronic anemia or thrombocytopenia. Patient has history of gi bleed. Found to have a hemoglobin of 7.5 which appears to be downtrending upon review of previous levels. Patient did have a bowel movement this was not melanotic with a negative occult. Patient initial troponin (-). Patient has 17% blasts cells this is concerning for a myelodysplastic syndrome or other malignant cause. Patient has low BP in ER, family states this has been recent baseline, patient denies dizziness. Patient case discussed at length wt Dr. Islas who consulted hematology--and admitted patient for serial troponins and further evaluation of chest pain, CBC derrangements. Discussed ddx with family including malignancy. Hematology recommended not transfusing patient at this time. (Yessi Clinton) I was available for consultation in the emergency department. The history and physical exam were done by the midlevel provider. I was consulted for this patients care. I reviewed the case with the midlevel provider and based on their presentation of the patient, I agree with the assessment, medical decision making and plan of care as documented. I evaluated the patient myself. She presents to the ED with chest pain and shortness of breath. Recently diagnosed with RA after she saw rheumatology for a persistently swollen knee and ankles. Physical exam demonstrates a pale, weak appearing female. She is noted to have low blood pressure in the ED, especially with ambulation. I discussed the patients case with Sandra Palomo from hematology who recommended holding off on transfusion until hematology is able to evaluate the patient. I also discussed the case with Dr. Pierce. The patient was re-evaluated at multiple occasions. He blood pressure improved with removal of the nitro paste and bedrest. She remained in stable condition and was transferred to the floor. Chart was dictated using [employer] dictation software. Attempts were made to correct any dictation errors however some typographical errors may persist. (Cassandra Islas) Disposition Is patient prescribed a controlled substance at d/c from ED?: No Time of Disposition: 09:27 Decision to Admit Reason: Admit from EC Decision Date: 04/22/19 Decision Time: 09:27 <Yessi Clinton - Last Filed: 04/22/19 14:27> <Cassandra Islas - Last Filed: 04/30/19 13:00> Clinical Impression: Anemia, Chest pain, Thrombocytopenia, Chronic joint pain Disposition: ADMITTED IP TO THIS HOSP Condition: Stable
[2019-04-22 07:40] LABS: Eosinophils # (M) 0.12 k/uL (0-0.7); Monocytes # (M) 1.22 k/uL (0-1.0); Myelocytes # (M) 0.06 k/uL (0); Myelocytes % 1 %; Nucleated Red Blood Cells 0 /100 WBC (0-0); Total Cells Counted 200
[2019-04-22 07:41] LABS: Polychromasia Present; Spherocytes Present
[2019-04-22 07:42] LABS: Poikilocytosis (M) Present
[2019-04-22] MEDS ORDERED: ACETAMINOPHEN TAB 325 MG TAB PO STA (08:13)
--- NOTE | 2019-04-22 08:18 | CT ---
EXAMINATION TYPE: CT chest angio for PE DATE OF EXAM: 04/22/2019 COMPARISON: HISTORY: Chest pain CT DLP: 257.7 mGycm CONTRAST: CT chest with contrast and 3D reconstruction with MIP imaging is performed without and with IV Contra st, patient injected with 100 ml mL of Isovue 370. Contrast-enhanced CT of the chest was performed through the course of the pulmonary arteries with [place] g and mediastinal window settings submitted. 3D reconstruction with MIP imaging was also performed. PULMONARY ARTERIES: The pulmonary arteries and their major tributaries are patent. I do not see sal dence for sizable filling defect to suggest pulmonary embolic process. LUNGS: The lungs are clear and free of infiltrate. No evidence for atelectasis. No pulmonary nodule or mass is detected. No pleural effusion. MEDIASTINUM: Thoracic aorta is of normal caliber,however, evaluation is limited given timing of the contrast bolus. If there is concern for thoracic aortic pathology consider MAXINE. Correlate clinicall y . The heart is not enlarged. Small posterior pericardial effusion measuring 8 mm. No evidence for m ediastinal mass. No mediastinal lymph nodes greater than 1cm. HILAR STRUCTURES: No evidence for mass. No hilar lymph nodes greater than 1 cm. UPPER ABDOMEN: No significant abnormality is seen. IMPRESSION: 1. No evidence for Pulmonary embolism at this time.
[2019-04-22 08:19] LABS: Basophils # (M) 0.06 k/uL (0-0.2); Lymphocytes # (M) 2.38 k/uL (1.0-4.8); Neutrophils % (M) 22 %
[2019-04-22 08:22] LABS: Blast Cells # (M) 1.04 k/uL (0)
[2019-04-22 08:23] LABS: Mixed Population RBC Present
[2019-04-22 08:27] LABS: Neutrophils # (M) 1.34 k/uL (1.3-7.7)
[2019-04-22] MEDS ORDERED: SODIUM CHLORIDE 0.9% 1,000 ML IV ONE (08:35)
[2019-04-22] MEDS ORDERED: NITROGLYCERIN SL TABS 0.4 MG TAB SUBLINGUAL PRN (09:23)
[2019-04-22] MEDS ORDERED: fentaNYL (PF) 50 MCG/ML 2 ML AMP IVP STA (11:56)
[2019-04-22] MEDS: SODIUM CHLORIDE 0.9% 1,000 ML IV SCH ×2 (12:07→20:30)
[2019-04-22] MEDS ORDERED: TRIAMCINOLONE ACETONIDE 40 MG/ML 1 ML VIAL INTRAARTIC ONE (17:20)
[2019-04-22] MEDS ORDERED: LIDOCAINE 1% INJ 10MG/ML (20 ML MDV) SQ ONE (17:20)
[2019-04-22] MEDS ORDERED: NORFLURANE/PENTAFLUOROPROPANE 103.5 ML SPRAY (PAIN EASE) TOPICAL ONE (17:30)
[2019-04-22] MEDS ORDERED: MORPHINE SULFATE 2 MG/ML SYRINGE IVP PRN (18:07)
[2019-04-22] MEDS ORDERED: MORPHINE SULFATE 4 MG/ML SYRINGE IVP PRN (18:07)
[2019-04-22 19:40] LABS: Appearance,Urine Clear (Clear); Bilirubin,Urine Negative (Negative); Blood,Urine Negative (Negative); Color,Urine Light Yellow; Glucose,Urine (UA) Negative (Negative); Ketones,Urine Negative (Negative); Leukocyte Esterase,Urine Negative (Negative); Nitrite,Urine Negative (Negative); PH, Urine 7.5 (5.0-8.0); Protein,Urine Negative (Negative); Specific Gravity,Urine 1.017 (1.001-1.035); Urobilinogen,Urine <2.0 mg/dL (<2.0)
--- NOTE | 2019-04-22 20:22 | P.HPIM ---
History of Present Illness H&P Date: 04/22/19 Chief Complaint: Chest pain History of presenting complaint: This is a very pleasant 63-year-old patient of Dr. Lori Mendez. Chronic stable medical conditions include narcolepsy, diverticulosis, GERD. Echo February 22 patient's symptoms chondromalacial started off the headache. Headache became progressively worse. She went and saw her family doctor Dr. Mendez. Initially was prescribed ibuprofen and Tylenol. Headaches did not improve and patient went on to the ER and then on March 23 she presented to ER again and was given steroids. And there was a concern about IV site getting infected should go to see her family doctor again and again symptoms ER. She was felt not to be in need to be repeated was given oral antibiotics. In the meantime she has seen Dr. Ortega from rheumatology and also questionable diagnosis of rheumatoid arthritis. Subsequently the workup came back negative. She also had a referral for medical review specialist Dr. Pineda. In the meantime she started also having pain in different joints including the right knee the left knee the ankles. Patient also got feeling of dry eyes. Some fever and chills. Also noticed some swelling of the left feet. No skin changes. Some constipation. Minimal diarrhea. Appetite had gone down. Today she was having sharp anterior chest pains. Questionable shortness of breath. No hemoptysis. Tired rundown. Patient is barely able to walk because of swelling especially the right knee. In the ER was found to have found to be anemic and some glossal cyst followed at the periphery. Hence, consultation with hematology and rheumatology was initiated. Patient's and daughter and [id number] present in the room. Review of systems: GEN.: Weak tired rundown fever EYES: Dry eyes HEENT: None NECK: None RESPIRATORY: None CARDIOVASCULAR: Anterior chest wall sharp pain GASTROINTESTINAL: None GENITOURINARY: None MUSCULOSKELETAL: As above, including muscle pains LYMPHATICS: None HEMATOLOGICAL: None PSYCHIATRY: None NEUROLOGICAL: None Past medical history to include: GERD, gastritis duodenitis, diverticulosis, narcolepsy Social history: . No smoking or alcohol. Did housecleaning. Physical examination: VITAL SIGNS: 98.4, 95, 80, 100/60, 97% on room air GENERAL: BMI 26.4, laying in bed awake, but tired. EYES: Pupils equal. Conjunctiva palel. HEENT: External appearance of nose and ears normal, oral cavity grossly normal. NECK: JVD not raised; masses not palpable. HEART: First and second heart sounds are normal; no edema. LUNGS: Respiratory rate normal; clear to auscultation. ABDOMEN: Soft, nontender, liver spleen not palpable, no masses palpable. PSYCH: Alert and oriented x3; mood and affect normal. MUSCULOSKELETAL: Right knee joint swollen tender, increased local temperature, vertebral range of motion, some swelling of the left foot for temperature NEUROLOGICAL: Cranial nerves grossly intact; no facial asymmetry, power and sensation grossly intact. LYMPHATICS: No lymph nodes palpable in the axilla and neck INVESTIGATIONS, reviewed in the clinical context: White count 6.1 hemoglobin 7.5 MCV elevated-platelets 41 bLast cells 17% d-dimer 2.06 Potassium 3.9 creatinine 0.64 Troponin I is less than 0.012 Albumin 2.9 EKG tracing personally reviewed by me-normal sinus rhythm Chest CTA-negative for PE Chest x-ray film-questionable infiltrate. Film personally reviewed by me Assessment: -This is a patient been having symptoms for got 2 months. Started of with headaches been having different joints being affected. Low-grade fever. Anemi a. Also patient's differentials including blast cells. Clinical picture strongly leaning towards an acute leukemia. -Chronic diverticulosis asymptomatic -Narcolepsy -GERD -Bicytopenia, cause unclear at this point -Acute right knee pain swelling, other joints also involved. Plan: Consultation was made to hematology and rheumatology. Earlier Dr. Garcia and try to aspirate the right knee not much success. Steroids were injected. Dr. Pineda also saw the patient earlier today. Plan is for bone marrow aspiration. Supportive care is reviewed in the meantime including IV fluids. For pain icepack to be used. Care was discussed with the patient and family at the bedside. Past Medical History Past Medical History: Chest Pain / Angina, GERD/Reflux, GI Bleed Additional Past Medical History / Comment(s): Pt and spouse state that pt is currently being worked up for possible RA. Since January 2019 pt has had headaches/cervical pain/dizziness vomiting then syncope and anemia, IV site infection/intermittent R knee and L foot edema and pain. Other hx: Lower GI bleed, gastritis, douodenitis, gastric polyp, diverticular disease, narcolepsy History of Any Multi-Drug Resistant Organisms: None Reported Past Surgical History: Tubal Ligation Additional Past Surgical History / Comment(s): EGDs, colonoscopy Past Anesthesia/Blood Transfusion Reactions: No Reported Reaction Past Psychological History: No Psychological Hx Reported Smoking Status: Never smoker Past Alcohol Use History: None Reported Past Drug Use History: None Reported - Past Family History Mother Additional Family Medical History / Comment(s): pulmonary fibrosis- Brother(s) Additional Family Medical History / Comment(s): pulmonary fibrosis with lung transplant Father Family Medical History: Dementia Medications and Allergies Home Medications Medication Instructions Recorded Confirmed Type Citalopram Hydrobromide 20 mg PO DAILY 07/23/14 04/22/19 History [Citalopram HBr] Esomeprazole Magnesium [NexIUM] 40 mg PO BID 07/23/14 04/22/19 History Multivitamins, Thera [Multivitamin] 1 tab PO DAILY 06/07/15 04/22/19 History Ascorbic Acid [Vitamin C] 1,000 mg PO DAILY 04/22/19 04/22/19 History Calcium Carbonate/Vitamin D3 2 tab PO DAILY 04/22/19 04/22/19 History [Calcium 600-Vit D3 800 Caplet] Clobetasol Propionate [Temovate 1 applic TOPICAL BID PRN 04/22/19 04/22/19 History 0.05% Cream] Dextroamphetamine/Amphetamine 5 mg PO DAILY 04/22/19 04/22/19 History [Adderall] Hydrocodone/Acetaminophen [[place] 1 tab PO TID PRN 04/22/19 04/22/19 History 7.5-325] Niacin 500 mg PO HS 04/22/19 04/22/19 History [place]-3 Fatty Acids [[place]-3] 1,000 mg PO DAILY 04/22/19 04/22/19 History Probiotic W/ Fiber 1 tab PO DAILY 04/22/19 04/22/19 History Super B Complex W/ Biotin 1 tab PO DAILY 04/22/19 04/22/19 History Triamcinolone 0.1% Cream [Kenalog 1 applic TOPICAL BID PRN 04/22/19 04/22/19 History 0.1% Cream] predniSONE [Deltasone] 20 mg PO HS 04/22/19 04/22/19 History predniSONE [Deltasone] 40 mg PO QAM 04/22/19 04/22/19 History Allergies Allergy/AdvReac Type Severity Reaction Status Date / Time No Known Allergies Allergy Verified 04/22/19 08:18 Physical Exam Vitals: Vital Signs Temp Pulse Pulse Resp BP BP Pulse Ox 04/22/19 16:00 95 18 04/22/19 15:30 98.4 F 95 18 100/60 97 04/22/19 13:57 79 16 104/58 100 04/22/19 10:49 62 20 86/47 100 04/22/19 10:17 60 20 90/48 93 L 04/22/19 08:56 56 L 24 93/48 93 L 04/22/19 08:09 98.7 F 74 20 119/68 98 04/22/19 06:22 98.5 F 73 18 132/81 100 Intake and Output 04/22/19 04/22/19 04/22/19 06:59 14:59 22:59 Other: Voiding Method Bedside Commode # Bowel Movements 1 Weight 61.235 kg 61.235 kg Results CBC & Chem 7: 04/22/19 06:29 04/22/19 06:29 Labs: Abnormal Lab Results - Last 24 Hours (Table) 04/22/19 04/22/19 04/22/19 Range/Units 06:29 06:29 06:29 RBC 2.12 L (3.80-5.40) m/uL Hgb 7.5 L (11.4-16.0) gm/dL Hct 22.3 L (34.0-46.0) % MCV 105.2 H (80.0-100.0) fL MCH 35.2 H (25.0-35.0) pg RDW 16.7 H (11.5-15.5) % Plt Count 41 L D (150-450) k/uL Blast Cells % 17 H* % Monocytes # (Manual) 1.22 H (0-1.0) k/uL Myelocytes # (Manual) 0.06 H (0) k/uL Blast Cells # (Man) 1.04 H (0) k/uL Pathologist Review See comment A APTT 19.7 L (22.0-30.0) sec D-Dimer 2.06 H (<0.60) mg/L FEU Carbon Dioxide 34 H (22-30) mmol/L Total Protein 6.0 L (6.3-8.2) g/dL Albumin 2.9 L (3.5-5.0) g/dL Thrombosis Risk Factor Assmnt - Choose All That Apply Any of the Below Risk Factors Present?: Yes Each Factor Represents 1 point: Obesity (BMI >25) Other Risk Factors: Yes Each Risk Factor Represents 2 Points: Age 61-74 years Other congenital or acquired thrombophilia - If yes, enter type in comment: No Thrombosis Risk Factor Assessment Total Risk Factor Score: 3 Thrombosis Risk Factor Assessment Level: Moderate Risk
[2019-04-22] MEDS ORDERED: VANCOMYCIN IV PER PHARMACY 1 EACH MISC MISCELLANE PRN (20:27)
[2019-04-22] MEDS: LACTATED RINGERS 1,000 ML IV SCH (20:32)
[2019-04-22] MEDS: ACETAMINOPHEN TAB 325 MG TAB PO PRN (20:33)
[2019-04-22] MEDS: MORPHINE SULFATE 2 MG/ML SYRINGE IVP PRN (20:34)
[2019-04-22] MEDS ORDERED: VANCOMYCIN 1,250 MG in SODIUM CHLORIDE 0.9% 250 ML IVPB ONE (21:00)
[2019-04-22] MEDS ORDERED: TRIAMCINOLONE 0.1% CREAM 80 GM TUBE TOPICAL PRN (21:58)
[2019-04-22] MEDS ORDERED: CLOBETASOL PROP 0.05% CR 15GM TOPICAL PRN (21:58)
[2019-04-22] MEDS ORDERED: HYDROcodone/APAP 7.5-325MG 1 EACH TAB PO PRN (21:58)
--- NOTE | 2019-04-22 22:21 | P.CONS ---
History of Present Illness - Reason for Consult Consult date: 04/22/19 Pancytopenia, abnormal peripheral smear - History of Present Illness Ms Carrier is a 63 yr old white female,recently in consult at the office on 04/20/19. She was in overall good health still 02/16. At that point the patient developed posterior headaches and stiff neck that were quite severe. She was seen by her primary care physician and also neurology, but did not respond to anti-inflammatories and muscle relaxants. Due to the severity of these symptoms, she actually went to the emergency room in late 03/18. She had CT scans done, which were Again negative. The patient developed an infection in the left upper extremity at the IV site, and had to be on oral antibiotics as an outpatient. She then developed swelling of the hands, and the bilateral MCP joints, as well as swelling of the left knee and ankle. She was seen by orthopedics who felt that she likely had an inflammatory arthritis such as RA. She had a short course of steroids, with partial relief. However symptoms recurred soon after stopping the steroids. The patient had mother course of antibiotics with Bactrim, which she completed on 04/19/19. labs showed persistently elevated inflammatory markers with sedimentation rate greater than 100. She was also referred to rheumatology, Dr Castellon, we will also felt that the patient had autoimmune inflammation and ordered workup for the same, including a temporal artery biopsy. The patient has had decline in her blood counts is onset of her symptoms. On 03/23/19 hemoglobin was 10.6 with white count 3.8 and platelets 109. On 04/01/19 hemoglobin is 9.7 with white count 5.1 and platelets 88. On 04/06/19 it was down to 8.7 with white count 4.5 and platelets 91. From that they noted factor and AKIKO were negative. CRP was elevated at 16. Ferritin was also high at 653. From 04/13/19 hemoglobin was down to 7.9 with platelets of 68 and white count 6. Differential showed normal ANC at 2.9. There was some increase in absolute monocytes at 1.17. The patient was therefore referred here. She denied any prior history of blood related problems. No history of any excessive alcohol use the patient was initially felt to have autoimmune cytopenias And/or marrow suppression from autoimmune inflammation based on her history so far. The showed no improvement and actually further drop in platelet count of 44 despite her being on steroids for week. In addition her peripheral smear was abnormal case was discussed with the pathology to currently confirmed that they were bl ast on peripheral smear The patient had been having progressive fatigue, and came into the hospital because she developed mid chest pain which is somewhat pleuritic in character. Had a CTA of the chest on which was negative for PE or significant pneumonia. She will also hypotensive on admission with some improvement with IV fluid. Labs again showed pancytopenia with counts in the same range as in the office. However blasts percentage was further increased at 15%. Consult was therefore placed for further evaluation and recommendations Review of Systems Constitutional: Reports chronic pain, Reports fatigue, Reports poor appetite, Reports weakness Eyes: bilateral blurred vision, denies pain Ears: deny: decreased hearing, ear discharge, earache, tinnitus Ears, nose, mouth and throat: Denies headache, Denies sore throat Cardiovascular: Reports chest pain, Reports dyspnea on exertion Respiratory: Reports dyspnea Gastrointestinal: Denies abdominal pain, Denies diarrhea, Denies nausea, Denies vomiting Genitourinary: Denies dysuria, Denies hematuria Menstruation: Reports postmenopausal Musculoskeletal: Reports hot joints Musculoskeletal: right: ankle pain, knee pain, knee swelling Integumentary: Denies pruritus, Denies rash Neurological: Reports weakness Psychiatric: Denies anxiety, Denies depression Endocrine: Reports fatigue Hematologic/Lymphatic: Reports as per HPI Past Medical History Past Medical History: Chest Pain / Angina, GERD/Reflux, GI Bleed Additional Past Medical History / Comment(s): Pt and spouse state that pt is currently being worked up for possible RA. Since January 2019 pt has had headaches/cervical pain/dizziness vomiting then syncope and anemia, IV site infection/intermittent R knee and L foot edema and pain. Other hx: Lower GI bleed, gastritis, douodenitis, gastric polyp, diverticular disease, narcolepsy History of Any Multi-Drug Resistant Organisms: None Reported Past Surgical History: Tubal Ligation Additional Past Surgical History / Comment(s): EGDs, colonoscopy Past Anesthesia/Blood Transfusion Reactions: No Reported Reaction Past Psychological History: No Psychological Hx Reported Smoking Status: Never smoker Past Alcohol Use History: None Reported Past Drug Use History: None Reported - Past Family History Mother Additional Family Medical History / Comment(s): pulmonary fibrosis- Brother(s) Additional Family Medical History / Comment(s): pulmonary fibrosis with lung transplant Father Family Medical History: Dementia Medications and Allergies Home Medications Medication Instructions Recorded Confirmed Type Citalopram Hydrobromide 20 mg PO DAILY 07/23/14 04/22/19 History [Citalopram HBr] Esomeprazole Magnesium [NexIUM] 40 mg PO BID 07/23/14 04/22/19 History Multivitamins, Thera [Multivitamin] 1 tab PO DAILY 06/07/15 04/22/19 History Ascorbic Acid [Vitamin C] 1,000 mg PO DAILY 04/22/19 04/22/19 History Calcium Carbonate/Vitamin D3 2 tab PO DAILY 04/22/19 04/22/19 History [Calcium 600-Vit D3 800 Caplet] Clobetasol Propionate [Temovate 1 applic TOPICAL BID PRN 04/22/19 04/22/19 History 0.05% Cream] Dextroamphetamine/Amphetamine 5 mg PO DAILY 04/22/19 04/22/19 History [Adderall] Hydrocodone/Acetaminophen [[place] 1 tab PO TID PRN 04/22/19 04/22/19 History 7.5-325] Niacin 500 mg PO HS 04/22/19 04/22/19 History [place]-3 Fatty Acids [[place]-3] 1,000 mg PO DAILY 04/22/19 04/22/19 History Probiotic W/ Fiber 1 tab PO DAILY 04/22/19 04/22/19 History Super B Complex W/ Biotin 1 tab PO DAILY 04/22/19 04/22/19 History Triamcinolone 0.1% Cream [Kenalog 1 applic TOPICAL BID PRN 04/22/19 04/22/19 History 0.1% Cream] predniSONE [Deltasone] 20 mg PO HS 04/22/19 04/22/19 History predniSONE [Deltasone] 40 mg PO QAM 04/22/19 04/22/19 History Allergies Allergy/AdvReac Type Severity Reaction Status Date / Time No Known Allergies Allergy Verified 04/22/19 08:18 Physical Exam Vitals: Vital Signs Temp Pulse Pulse Resp BP BP Pulse Ox 04/22/19 16:00 95 18 04/22/19 15:30 98.4 F 95 18 100/60 97 04/22/19 13:57 79 16 104/58 100 04/22/19 10:49 62 20 86/47 100 04/22/19 10:17 60 20 90/48 93 L 04/22/19 08:56 56 L 24 93/48 93 L 04/22/19 08:09 98.7 F 74 20 119/68 98 04/22/19 06:22 98.5 F 73 18 132/81 100 Intake and Output 04/22/19 04/22/19 04/22/19 06:59 14:59 22:59 Other: Voiding Method Bedside Commode # Bowel Movements 1 Weight 61.235 kg 61.235 kg - Constitutional General appearance: no acute distress - EENT Eyes: EOMI, PERRLA ENT: hearing grossly normal, normal oropharynx - Neck Neck: no lymphadenopathy Thyroid: bilateral: normal size - Respiratory Respiratory: bilateral: CTA - Cardiovascular Rhythm: regular Heart sounds: normal: S1, S2 - Gastrointestinal General gastrointestinal: normal bowel sounds, soft - Integumentary Integumentary: normal - Neurologic marked swelling, bogginess, poss fluctuation rt knee. same findings, though much less in degree rt ankle. ROM decreased rt knee Neurologic: CNII-XII intact - Musculoskeletal Musculoskeletal: generalized weakness - Psychiatric Psychiatric: A&O x's 3, appropriate affect Results CBC & Chem 7: 04/22/19 06:29 04/22/19 06:29 Labs: Abnormal Lab Results - Last 24 Hours (Table) 04/22/19 04/22/19 04/22/19 Range/Units 06:29 06:29 06:29 RBC 2.12 L (3.80-5.40) m/uL Hgb 7.5 L (11.4-16.0) gm/dL Hct 22.3 L (34.0-46.0) % MCV 105.2 H (80.0-100.0) fL MCH 35.2 H (25.0-35.0) pg RDW 16.7 H (11.5-15.5) % Plt Count 41 L D (150-450) k/uL Blast Cells % 17 H* % Monocytes # (Manual) 1.22 H (0-1.0) k/uL Myelocytes # (Manual) 0.06 H (0) k/uL Blast Cells # (Man) 1.04 H (0) k/uL Pathologist Review See comment A APTT 19.7 L (22.0-30.0) sec D-Dimer 2.06 H (<0.60) mg/L FEU Carbon Dioxide 34 H (22-30) mmol/L Uric Acid (3.7-7.4) mg/dL Total Protein 6.0 L (6.3-8.2) g/dL Albumin 2.9 L (3.5-5.0) g/dL 04/22/19 Range/Units 19:53 RBC (3.80-5.40) m/uL Hgb (11.4-16.0) gm/dL Hct (34.0-46.0) % MCV (80.0-100.0) fL MCH (25.0-35.0) pg RDW (11.5-15.5) % Plt Count (150-450) k/uL Blast Cells % % Monocytes # (Manual) (0-1.0) k/uL Myelocytes # (Manual) (0) k/uL Blast Cells # (Man) (0) k/uL Pathologist Review APTT (22.0-30.0) sec D-Dimer (<0.60) mg/L FEU Carbon Dioxide (22-30) mmol/L Uric Acid 2.6 L (3.7-7.4) mg/dL Total Protein (6.3-8.2) g/dL Albumin (3.5-5.0) g/dL Chest x-ray: report reviewed CT scan - chest: report reviewed Assessment and Plan (1) Bicytopenia Narrative/Plan: Clinical history as noted in the HPI. As described labs done in the office on 04/20/19 had shown a small percentage of blasts, confirmed on discussion with pathologist. On this presentation, though total WBC is the same, blast percentage is increased. In this clinical situation, major differential diagnosis is an aggressive bone marrow process, specifically acute leukemia. Other possibility such as aggressive myelodysplasia or myelofibrosis in transformation are not ruled out. Pancytopenia workup for other causes was done in the office and has been negative. The above, and implications were discussed in detail with the patient and her family. In a bone marrow aspiration biopsy for further workup. Pathophysiology and management for acute leukemias was also discussed. Decision was discussed in detail. She is agreeable to proceed and we will try to set this up for 04/23/19 Meantime continue to monitor and provide transfusion support for hemoglobin less than 7 and platelets less than 10 Current Visit: Yes Status: Acute Code(s): D75.89 - OTHER SPECIFIED DISEASES OF BLOOD AND BLOOD-FORMING ORGANS SNOMED Code(s): 13473946 (2) Blood dyscrasia Narrative/Plan: In addition to the bicytopenia, the patient has increasing blast on peripheral smear. Differential diagnosis and plan as noted above Current Visit: Yes Status: Acute Code(s): D75.9 - DISEASE OF BLOOD AND BLOOD-FORMING ORGANS, UNSPECIFIED SNOMED Code(s): 226763831 (3) Inflammation of joint of right knee Narrative/Plan: this is a new finding since 04/20. It was discussed in detail with rheumatology. Given her presentation with hypotension, concern is infection. Other possibilities include gout, given suspected hyperproliferative marrow, as well as paraneoplastic inflammatory arthritis. Direct involvement with leukemia is also a possibility that his clinically rare. Rheumatology will attempt to aspirate the joint. If fluid is obtained, in addition to routine testing, flow cytometry will also be requested Current Visit: Yes Status: Acute Code(s): M13.161 - MONOARTHRITIS, NOT ELSEWHERE CLASSIFIED, RIGHT KNEE SNOMED Code(s): 660721289 (4) SIRS (systemic inflammatory response syndrome) Narrative/Plan: Exact etiology is not known at this time. Systemic inflammation from her underlying hematologic disease is a possibility given persistently elevating sedimentation rate. Infection, especially given the new knee findings is also possibility. Cultures will be drawn. Patient will be started on cefepime empirically after cultures are done. Continue IV hydration Current Visit: Yes Status: Acute Code(s): R65.10 - SIRS OF NON-INFECTIOUS ORIGIN W/O ACUTE ORGAN DYSFUNCTION SNOMED Code(s): 794983940 Plan: IV morphine will be ordered for the patient's pain, with parameters based on blood pressure
[2019-04-22] MEDS: PANTOPRAZOLE 40 MG TABLET PO SCH (22:33)
[2019-04-22] MEDS: HYDROCORTISONE SUCCINATE 100 MG/2 ML VIAL IV SCH (22:33)
[2019-04-23] MEDS ORDERED: CEFEPIME 2 GM in SODIUM CHLORIDE 0.9% 100 ML IVPB SCH ×2
[2019-04-23] MEDS: NIACIN TR 500 MG CAPLET PO SCH ×2 (01:09→22:11)
[2019-04-23] MEDS: LACTATED RINGERS 1,000 ML IV SCH ×3 (03:54→11:56)
[2019-04-23] MEDS: VANCOMYCIN 1,250 MG in SODIUM CHLORIDE 0.9% 250 ML IVPB SCH ×3 (06:03→22:58)
[2019-04-23] MEDS: PANTOPRAZOLE 40 MG TABLET PO SCH ×2 (06:03→17:14)
[2019-04-23 06:55] LABS: Cholesterol 118 mg/dL (<200); HDL Cholesterol 49 mg/dL (40-60); LDL Cholesterol,Calculated 54 mg/dL (0-99); Triglycerides 75 mg/dL (<150)
[2019-04-23 07:35] LABS: Anisocytosis Slight; HCT 24.3 % (34.0-46.0); HGB 7.9 gm/dL (11.4-16.0); MCH 35.2 pg (25.0-35.0); MCHC 32.5 g/dL (31.0-37.0); MCV 108.3 fL (80.0-100.0); Macrocytosis Marked; Mean Platelet Volume 8.6; RBC 2.24 m/uL (3.80-5.40); RDW 16.8 % (11.5-15.5); WBC 6.2 k/uL (3.8-10.6)
[2019-04-23 07:46] LABS: Platelet Count 38 k/uL (150-450)
[2019-04-23] MEDS ORDERED: PROPOFOL 10 MG/ML 20 ML VIAL IV ONE (07:57)
[2019-04-23] MEDS ORDERED: fentaNYL (PF) 50 MCG/ML 2 ML AMP ONE (07:57)
[2019-04-23] MEDS ORDERED: LIDOCAINE 1% INJ 10MG/ML (20 ML MDV) ONE (07:57)
[2019-04-23] MEDS ORDERED: IV FLUID CONTINUATION 1,000 ML IV ONE (08:00)
--- NOTE | 2019-04-23 08:23 | P.PCN ---
Date of Procedure: 04/23/19 Preoperative Diagnosis: Bicytopenia, abnormal WBC diff Postoperative Diagnosis: same Procedure(s) Performed: Bone marrow aspiration and biopsy Anesthesia: MAC Surgeon: Galdino Pineda Bankruptcy Manager #1: Stated None Estimated Blood Loss (ml): 2 Pathology: other Condition: stable Disposition: floor Indications for Procedure: New onset anemia and thrombocytopenia with progression. Blasts on peripheral smear. 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 Informed consent was obtained on the floor. She was brought to outpatient endoscopy, and placed in the left lateral decubitus position. The area over both posterior iliac crest was cleaned and prepped with chlorhexidine and sterile draping. IV sedation was then infiltrated. No: Anesthesia was admitted with lidocaine to the right posterior iliac crest. A Jamshidi needle was then inserted and bone marrow aspirate and biopsy obtained. The initial biopsy sample was quite small for which an additional pass was made with better sample obtained. On withdrawal of the needle hemostasis was easily achieved. Blood loss was minimal and recovery from sedation was satisfactory. She appeared to have tolerated the procedure well without any obvious immediate complications.
[2019-04-23] MEDS ORDERED: ASPIRIN 325 MG TAB PO SCH (09:00)
[2019-04-23] MEDS: ASCORBIC ACID 500 MG TAB PO SCH (09:04)
[2019-04-23] MEDS: HYDROCORTISONE SUCCINATE 100 MG/2 ML VIAL IV SCH ×2 (09:04→16:16)
[2019-04-23] MEDS: MULTIVITAMINS, THERA 1 EACH TAB PO SCH (09:04)
[2019-04-23] MEDS: CITALOPRAM HYDROBROMIDE 20 MG TAB PO SCH (09:04)
[2019-04-23] MEDS: MORPHINE SULFATE 2 MG/ML SYRINGE IVP PRN ×4 (09:04→22:07)
[2019-04-23] MEDS: DEXTROAMPHETAMINE PO SCH (09:06)
[2019-04-23] MEDS: AMPHETAMINE PO SCH (09:06)
[2019-04-23 09:11] LABS: Band Neutrophils % 3 %; Basophils # (M) 0.12 k/uL (0-0.2); Eosinophils # (M) 0.06 k/uL (0-0.7); Lymphocytes # (M) 1.18 k/uL (1.0-4.8); Metamyelocytes # (M) 0.19 k/uL (0); Metamyelocytes % 3 %; Monocytes # (M) 1.49 k/uL (0-1.0); Myelocytes # (M) 0.19 k/uL (0); Myelocytes % 3 %; Neutrophils % (M) 34 %
[2019-04-23 09:12] LABS: Blast Cells # (M) 0.87 k/uL (0); Nucleated Red Blood Cells 0 /100 WBC (0-0); Poikilocytosis (M) Present; Rouleaux Present; Total Cells Counted 200
[2019-04-23 09:13] LABS: Toxic Vacuolation Present
[2019-04-23 09:14] LABS: Reticulocyte % 2.8 % (0.5-2.0)
--- NOTE | 2019-04-23 11:41 | ECHOF ---
Referral Reason:LVEF estimation for chemo, chest pain MEASUREMENTS -------- HEIGHT: 152.4 cm WEIGHT: 61.2 kg BP: RVIDd: 2.6 cm (< 3.3) IVSd: 1.2 cm (0.6 - 1.1) LVIDd: 4.3 cm (3.9 - 5.3) LVPWd: 1.1 cm (0.6 - 1.1) IVSs: 1.5 cm LVIDs: 2.7 cm LVPWs: 1.5 cm LA Diam: 3.1 cm (2.7 - 3.8) LAESV Index (A-L): 18.49 ml/m Ao Diam: 3.1 cm (2.0 - 3.7) AV Cusp: 2.2 cm (1.5 - 2.6) MV EXCURSION: 18.894 mm (> 18.000) MV EF SLOPE: 130 mm/s (70 - 150) EPSS: 0.3 cm MV E Rc: 0.95 m/s MV DecT: 163 ms MV A Rc: 0.83 m/s MV E/A Ratio: 1.14 AR PHT: 502 ms RAP: 15.00 mmHg RVSP: 37.64 mmHg TAPSE: 22.56 mm FINDINGS -------- Sinus rhythm. This was a technically good study. The left ventricular size is normal. There is borderline concentric left ventricular hypertrophy. Overall left ventricular systolic function is normal with, an EF between 60 - 65 %. The right ventricle is normal in size. Normal LA size by volume 22+/-6 ml/m2. The right atrium is normal in size. Interatrial and interventricular septum intact. There is mild aortic valve sclerosis. Mild mitral annular calcification present. Mild mitral regurgitation is present. Mild tricuspid regurgitation present. There is mild pulmonary hypertension. The right ventricular systolic pressure, as measured by Doppler, is 37.64mmHg. Trace/mild (physiologic) pulmonic regurgitation. The aortic root size is normal. The inferior vena cava is dilated with poor inspiratory collapse which is consistent with estimated r ight atrial pressure of 15 mmHg. There is no pericardial effusion. CONCLUSIONS -------- 1. Sinus rhythm. 2. This was a technically good study. 3. The left ventricular size is normal. 4. There is borderline concentric left ventricular hypertrophy. 5. Overall left ventricular systolic function is normal with, an EF between 60 - 65 %. 6. The right ventricle is normal in size. 7. Normal LA size by volume 22+/-6 ml/m2. 8. The right atrium is normal in size. 9. Interatrial and interventricular septum intact. 10. There is mild aortic valve sclerosis. 11. Mild mitral annular calcification present. 12. Mild mitral regurgitation is present. 13. Mild tricuspid regurgitation present. 14. There is mild pulmonary hypertension. 15. The right ventricular systolic pressure, as measured by Doppler, is 37.64mmHg. 16. Trace/mild (physiologic) pulmonic regurgitation. 17. The aortic root size is normal. 18. The inferior vena cava is dilated with poor inspiratory collapse which is consistent with estimat ed right atrial pressure of 15 mmHg. 19. There is no pericardial effusion. GERMINATION TESTING MANAGER: Sayda Gramajo RDCS
[2019-04-23] MEDS: CEFEPIME 2 GM in SODIUM CHLORIDE 0.9% 100 ML IVPB SCH ×2 (11:53→21:06)
--- NOTE | 2019-04-23 14:38 | P.CRDCN ---
History of Present Illness History of present illness: This is Arabella Kirkland PA-C dictating a consult on this patient The patient was interviewed and examined by me as well as by Dr. Hope Case discussed with Dr. Hope and he agrees with the plan of care HPI Patient is a 63-year-old female with a past medical history of RA who presented with complaints of chest discomfort. She does not follow with a wire steward. She states she woke up with a headache and stiffness in her arms and legs. She then developed sharp discomfort in the center of her chest. It developed while she was at rest. She attributed to gas pain and was burping but it was not relieved. she has never had discomfort like this before. She may have also felt a little bit short of breath. No nausea, diaphoresis. No dizziness palpitations or syncope. Upon arrival to the emergency department her vital signs were stable. EKG showed sinus mechanism with no ST or T-wave changes. Chest CT was negative for pulmonary embolism. Labs were significant for anemia and thrombocytopenia Troponins were negative. She was admitted for further evaluation. Patient seen and examined resting in bed. States her pain resolved when she was given pain medication in the emergency department. She was able to eat and has not had any pain since. ROS: No fevers, chills or rigors, no cough, phlegm or expectoration, no nausea, vomiting or diarrhea, no hematuria, dysuria, no musculoskeletal complaints, no strokes or seizures, no skin lesions. EXAMINATION: Temperature is 98.7F, pulse in the 80s, respirations 18, blood pressure 103/64, oxygen saturation 97% on 2 L nasal cannula pt seen and examined resting in bed, appears in no acute distress Lungs are clear to auscultation bilaterally no wheezing rhonchi or crackles Heart is regular, normal S1-S2, no murmurs audible No tenderness to palpation along the chest wall REVIEW OF LABS, ECG & MEDICAL DATA WBC 6.2, hemoglobin 7.9, platelets 38, potassium 3.9, BUN 17, creatinine 0.74 LDL 54 Echocardiogram shows normal LV size and function, EF 60-65%, no significant valvular abnormalities IMPRESSION / ASSESSMENT: Atypical chest discomfort, negative cardiac enzymes, EKG showing no acute changes, likely noncardiac Echocardiogram showing preserved LV systolic function History of RA Anemia and thrombocytopenia, hematology has been consult PLAN: No further cardiac workup is indicated at this time, management of multiple other medical problems by primary care team and hematology, we will sign off now and see her on an as-needed basis Past Medical History Past Medical History: Chest Pain / Angina, GERD/Reflux, GI Bleed Additional Past Medical History / Comment(s): Pt and spouse state that pt is currently being worked up for possible RA. Since January 2019 pt has had headaches/cervical pain/dizziness vomiting then syncope and anemia, IV site infection/intermittent R knee and L foot edema and pain. Other hx: Lower GI bl eed, gastritis, douodenitis, gastric polyp, diverticular disease, narcolepsy History of Any Multi-Drug Resistant Organisms: None Reported Past Surgical History: Tubal Ligation Additional Past Surgical History / Comment(s): EGDs, colonoscopy Past Anesthesia/Blood Transfusion Reactions: No Reported Reaction Past Psychological History: No Psychological Hx Reported Smoking Status: Never smoker Past Alcohol Use History: None Reported Past Drug Use History: None Reported - Past Family History Mother Additional Family Medical History / Comment(s): pulmonary fibrosis- Brother(s) Additional Family Medical History / Comment(s): pulmonary fibrosis with lung transplant Father Family Medical History: Dementia Medications and Allergies Home Medications Medication Instructions Recorded Confirmed Type Citalopram Hydrobromide 20 mg PO DAILY 07/23/14 04/22/19 History [Citalopram HBr] Esomeprazole Magnesium [NexIUM] 40 mg PO BID 07/23/14 04/22/19 History Multivitamins, Thera [Multivitamin] 1 tab PO DAILY 06/07/15 04/22/19 History Ascorbic Acid [Vitamin C] 1,000 mg PO DAILY 04/22/19 04/22/19 History Calcium Carbonate/Vitamin D3 2 tab PO DAILY 04/22/19 04/22/19 History [Calcium 600-Vit D3 800 Caplet] Clobetasol Propionate [Temovate 1 applic TOPICAL BID PRN 04/22/19 04/22/19 History 0.05% Cream] Dextroamphetamine/Amphetamine 5 mg PO DAILY 04/22/19 04/22/19 History [Adderall] Hydrocodone/Acetaminophen [[place] 1 tab PO TID PRN 04/22/19 04/22/19 History 7.5-325] Niacin 500 mg PO HS 04/22/19 04/22/19 History [place]-3 Fatty Acids [[place]-3] 1,000 mg PO DAILY 04/22/19 04/22/19 History Probiotic W/ Fiber 1 tab PO DAILY 04/22/19 04/22/19 History Super B Complex W/ Biotin 1 tab PO DAILY 04/22/19 04/22/19 History Triamcinolone 0.1% Cream [Kenalog 1 applic TOPICAL BID PRN 04/22/19 04/22/19 History 0.1% Cream] predniSONE [Deltasone] 20 mg PO HS 04/22/19 04/22/19 History predniSONE [Deltasone] 40 mg PO QAM 04/22/19 04/22/19 History Allergies Allergy/AdvReac Type Severity Reaction Status Date / Time No Known Allergies Allergy Verified 04/22/19 08:18 Physical Exam Vitals: Vital Signs Temp Pulse Resp BP Pulse Ox 04/23/19 12:00 98.2 F 84 18 103/64 97 04/23/19 08:35 98.2 F 79 18 97/57 100 04/23/19 04:00 97.3 F L 67 18 106/65 99 04/23/19 00:00 99.8 F H 94 18 93/55 95 04/22/19 20:30 97 04/22/19 20:00 102.1 F H 94 18 107/58 88 L 04/22/19 16:00 95 18 04/22/19 15:30 98.4 F 95 18 100/60 97 Intake and Output 04/22/19 04/23/19 04/23/19 22:59 06:59 14:59 Intake Total 540 Output Total 800 Balance -800 540 Intake: IV 300 Oral 240 Output: Urine 800 Other: Voiding Method Bedpan Bedpan # Voids 0 # Bowel Movements 1 Weight 61.235 kg Results 04/23/19 06:16 04/22/19 06:29 Cardiac Enzymes 04/22/19 Range/Units 19:53 Troponin I <0.012 (0.000-0.034) ng/mL Lipids 04/23/19 Range/Units 06:16 Triglycerides 75 (<150) mg/dL Cholesterol 118 (<200) mg/dL HDL Cholesterol 49 (40-60) mg/dL CBC 04/23/19 Range/Units 06:16 WBC 6.2 (3.8-10.6) k/uL RBC 2.24 L (3.80-5.40) m/uL Hgb 7.9 L (11.4-16.0) gm/dL Hct 24.3 L (34.0-46.0) % Plt Count 38 L (150-450) k/uL Current Medications Generic Name Dose Route Start Last Admin Trade Name Freq PRN Reason Stop Dose Admin Acetaminophen 650 mg 04/22/19 20:27 04/22/19 20:33 Tylenol Tab PO 650 mg Q4HR PRN Administration Fever and/ or Pain Hydrocodone Bitart/Acetaminophen 1 each 04/22/19 21:58 Kam[place] 7.5-325 PO TID PRN Pain Ascorbic Acid 1,000 mg 04/23/19 09:00 04/23/19 09:04 Vitamin C PO 1,000 mg DAILY JADEN Administration Citalopram Hydrobromide 20 mg 04/23/19 09:00 04/23/19 09:04 Celexa PO 20 mg DAILY JADEN Administration Clobetasol Propionate 1 applic 04/22/19 21:58 Temovate TOPICAL BID PRN IRRITATION Hydrocortisone Sodium Succinate 50 mg 04/22/19 22:15 04/23/19 09:04 Solu-Cortef IV 50 mg Q8HR JADEN Administration Lactated Ringer's 1,000 mls @ 150 mls/hr 04/22/19 20:30 04/23/19 11:56 Lactated Ringers IV 150 mls/hr .Q6H40M JADEN Administration Vancomycin HCl 1,250 mg/ 250 mls @ 125 mls/hr 04/23/19 06:00 04/23/19 13:58 Sodium Chloride IVPB 125 mls/hr Q8H JADEN Administration Cefepime HCl 2 gm/ Sodium 100 mls @ 200 mls/hr 04/23/19 12:00 04/23/19 11:53 Chloride IVPB 200 mls/hr Q8H JADEN Administration Miscellaneous Information 0 each 04/24/19 05:00 Vancomycin Trough Due MISCELLANE 04/24/19 05:01 DIRECTED ONE Morphine Sulfate 2 - 4 mg 04/22/19 20:26 04/23/19 12:54 Morphine Sulfate (Inj) IVP 2 mg Q4H PRN Administration Pain/Discomfort Multivitamins 1 each 04/23/19 09:00 04/23/19 09:04 Theragran PO 1 each DAILY JADEN Administration Niacin 500 mg 04/22/19 22:15 04/23/19 01:09 Niacin Tr PO 500 mg HS JADEN Administration Nitroglycerin 0.4 mg 04/22/19 09:23 Nitrostat SUBLINGUAL Q5M PRN Chest Pain Non-Formulary Medication 5 mg 04/23/19 09:00 04/23/19 09:06 Dextroamphetamine/Amphetamine [Adderall] PO Not Given DAILY JADEN Pantoprazole Sodium 40 mg 04/22/19 22:15 04/23/19 06:03 Protonix PO 40 mg AC-BID JADEN Administration Triamcinolone Acetonide 1 applic 04/22/19 21:58 Kenalog TOPICAL BID PRN IRRITATION Intake and Output 04/22/19 04/23/19 04/23/19 22:59 06:59 14:59 Intake Total 540 Output Total 800 Balance -800 540 Intake: IV 300 Oral 240 Output: Urine 800 Other: Voiding Method Bedpan Bedpan # Voids 0 # Bowel Movements 1 Weight 61.235 kg 04/23/19 06:16 04/22/19 06:29
[2019-04-23] MEDS: ACETAMINOPHEN TAB 325 MG TAB PO PRN (16:13)
--- NOTE | 2019-04-23 17:38 | P.PN ---
Subjective Progress Note Date: 04/23/19 Principal diagnosis: Atypical chest pain Bicytopenia; status post bone marrow biopsy 04/23/2019 Patient is seen and evaluated in room with multiple family members at bedside; patient is status post bone marrow biopsy; patient and family members are reques ting patient be transferred to [facility] as inpatient transfer; I did explain to the patient and family that patient may not be accepted for potential transfer if it's not for higher level of care; patient was discussed with case management for possible transfer; patient remains admitted as an observation and according to case management might not qualify for transfer; patient was admitted for possible sepsis and will be made inpatient and we will try to make arrangements for possible transfer to [facility] Objective - Vital Signs Vital signs: Vital Signs Temp 97.3 F L 04/23/19 04:00 Pulse 94 04/23/19 04:00 Resp 18 04/23/19 04:00 BP 106/65 04/23/19 04:00 Pulse Ox 99 04/23/19 04:00 Intake & Output 04/22/19 04/23/19 04/23/19 18:59 06:59 18:59 Intake Total 540 Output Total 800 Balance -800 540 Weight 61.235 kg 61.235 kg Intake: IV 300 Oral 240 Output: Urine 800 Other: Voiding Method Bedside Commode Bedpan # Voids 0 # Bowel Movements 1 - Exam PHYSICAL EXAMINATION: GENERAL: The patient is alert and oriented x3, not in any acute distress. Well developed, well nourished. HEENT: Pupils are round and equally reacting to light. EOMI. No scleral icterus. No conjunctival pallor. Normocephalic, atraumatic. No pharyngeal erythema. No thyromegaly. CARDIOVASCULAR: S1 and S2 present. No murmurs, rubs, or gallops. PULMONARY: Chest is clear to auscultation, no wheezing or crackles. ABDOMEN: Soft, nontender, nondistended, normoactive bowel sounds. No palpable organomegaly. MUSCULOSKELETAL: No joint swelling or deformity. EXTREMITIES: No cyanosis, clubbing, or pedal edema. NEUROLOGICAL: Gross neurological examination did not reveal any focal deficits. SKIN: No rashes. - Labs CBC & Chem 7: 04/23/19 06:16 04/22/19 06:29 Labs: Abnormal Lab Results - Last 24 Hours (Table) 04/22/19 04/22/19 04/23/19 Range/Units 06:29 19:53 06:16 RBC (3.80-5.40) m/uL Hgb (11.4-16.0) gm/dL Hct (34.0-46.0) % MCV (80.0-100.0) fL MCH (25.0-35.0) pg RDW (11.5-15.5) % Plt Count (150-450) k/uL Blast Cells % % Monocytes # (Manual) (0-1.0) k/uL Metamyelocytes # (Man) (0) k/uL Myelocytes # (Manual) (0) k/uL Blast Cells # (Man) (0) k/uL Pathologist Review See comment A Macrocytosis Retic Count (0.5-2.0) % Plasma Lactic Acid Erasmo 2.3 H* (0.7-2.0) mmol/L Uric Acid 2.6 L (3.7-7.4) mg/dL 04/23/19 Range/Units 06:16 RBC 2.24 L (3.80-5.40) m/uL Hgb 7.9 L (11.4-16.0) gm/dL Hct 24.3 L (34.0-46.0) % MCV 108.3 H (80.0-100.0) fL MCH 35.2 H (25.0-35.0) pg RDW 16.8 H (11.5-15.5) % Plt Count 38 L (150-450) k/uL Blast Cells % 14 H* % Monocytes # (Manual) 1.49 H (0-1.0) k/uL Metamyelocytes # (Man) 0.19 H (0) k/uL Myelocytes # (Manual) 0.19 H (0) k/uL Blast Cells # (Man) 0.87 H (0) k/uL Pathologist Review Macrocytosis Marked A Retic Count 2.8 H (0.5-2.0) % Plasma Lactic Acid Erasmo (0.7-2.0) mmol/L Uric Acid (3.7-7.4) mg/dL Assessment and Plan Assessment: 1. Chest pain; possibly atypical; EKG and cardiac enzymes are unremarkable; echocardiogram was done showing preserved left ventricular function; cardiology has signed off with no further testing required as inpatient 2. Bicytopenia; platelet count remains low at 38 with a hemoglobin of 7.9; oncology is on board and patient is status post bone marrow biopsy; possibility of acute leukemia has been discussed with patient; patient and family are req uesting transfer to [facility] for further care; bone marrow biopsy results are pending 3. Right knee pain and swelling; rheumatology is following and tried right knee aspiration which was not successful; patient was given steroid injection 4. SIRS (systemic inflammatory response syndrome); says from underlying hematological disease versus sepsis the knee joint; patient has been started on IV cefepime and vancomycin after cultures are done; await further recommendations from rheumatology 5. Depression; continue with Celexa 20 mg daily DVT prophylaxis; SCDs CODE STATUS; full code
--- NOTE | 2019-04-23 20:47 | CONS ---
CONSULTATION DATE OF SERVICE: 04/23/2019 REASON FOR CONSULTATION: Fever. HISTORY OF PRESENT ILLNESS: The patient is a 63-year-old female who seemed to be having a problem with multiple different symptoms over the last 2 months. The patient apparently was evaluated this year with concern for possible IV site cellulitis. However, the patient was not admitted, but discharged home on some antibiotics. The patient subsequently developed swelling of her left ankle followed by left knee and is now having a pain to the right area with no history of any trauma. The patient also had been complaining of feeling weak and tired. With these symptoms, the patient was evaluated by the ER physician. On arrival in the ER, the patient was afebrile. The patient did spike a fever of 102.1 degrees Fahrenheit last night. The patient did have a normal white count yesterday as well as today; however, it did show significant blasts. Lactic acid was mildly elevated. Repeat is normal. Uric acid has been normal. UA has been negative. The patient was complaining of some shortness of breath, for which the patient did have a CT angiogram done which came back negative for PE and lungs were clear and free of infiltrate. The patient has been empirically started on cefepime and vancomycin. Infectious Disease was consulted for further recommendations regarding antibiotic therapy. Apparently the patient did have an attempted aspirate of the right knee by Rheumatology, but it could not be done. Subsequently she did have steroid injection for symptomatic relief. REVIEW OF SYSTEMS: Positive points have been mentioned in HPI. Rest of the systems negative. PAST MEDICAL HISTORY: Angina, gastroesophageal reflux disease, GI bleed. PAST SURGICAL HISTORY: Tubal ligation. SOCIAL HISTORY: No history of smoking, drinking or drug use. FAMILY HISTORY: Mother with history of pulmonary fibrosis. Brother also with a history of pulmonary fibrosis with a lung transplant. ALLERGIES: NO KNOWN DRUG ALLERGIES. CURRENT MEDICATIONS: Include vancomycin, Pharmacy to dose, Protonix, Nitrostat, , morphine sulfate, Solu-Cortef, Celexa, cefepime, Tylenol. PHYSICAL EXAMINATION: Blood pressure is 103/64 with a pulse of 84, temperature 98.2. She is 97% on 2 L nasal cannula. General description is a middle-aged female lying in bed in no distress. No tachypnea or accessory muscle of respiration use. HEENT examination shows slight pallor. No scleral icterus. Oral mucosa membrane is dry. No pharyngeal erythema or thrush. NECK: Trachea is central. No thyromegaly. LUNGS: Unlabored breathing. Clear to auscultation anteriorly. No wheeze or crackle. HEART: S1, S2. Regular rate and rhythm. No added sound. ABDOMEN: Soft. No tenderness. No guarding or rigidity. EXTREMITIES: No edema of the feet. EXAMINATION OF MUSCULOSKELETAL SYSTEM: Right knee swollen, red and warm to touch. No fluctuation or any drainage. Neurologically, patient is awake, alert, oriented x3. Mood and affect normal. LABS/IMAGING: Hemoglobin 7.9, white count 6.2, BUN of 17, creatinine 0.64. Electrolytes are normal. Liver enzymes are normal. Urine is negative. CT angiogram was negative for any PE or pneumonia. DIAGNOSTIC IMPRESSION AND PLAN: Patient with multiple symptoms admitted to hospital and noticed to have anemia, thrombocytopenia with significant blast cells. 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 However, the significant inflammatory changes at the right knee are concerning. However, in view of a migratory arthritis part of rheumatological process. However, apparently the patient did have extensive workup done in the outpatient setting by Rheumatology, and no definite diagnosis. PLAN: 1. Await the bone marrow aspirate results. 2. Continue the empiric cefepime and vancomycin while waiting for the cultures to finalize. 3. Depending on clinical response and culture, will adjust medications further if needed. Thank you for this consultation. Will follow this patient along with you. MMODL / IJN: [id number] /
[2019-04-24] MEDS: HYDROCORTISONE SUCCINATE 100 MG/2 ML VIAL IV SCH ×3 (00:59→16:58)
[2019-04-24] MEDS: LACTATED RINGERS 1,000 ML IV SCH ×3 (00:59→07:59)
[2019-04-24] MEDS: CEFEPIME 2 GM in SODIUM CHLORIDE 0.9% 100 ML IVPB SCH ×2 (04:13→11:29)
[2019-04-24] MEDS ORDERED: VANCOMYCIN TROUGH DUE 1 EACH MISC MISCELLANE ONE (05:00)
[2019-04-24] MEDS: VANCOMYCIN 1,250 MG in SODIUM CHLORIDE 0.9% 250 ML IVPB SCH ×2 (05:53→14:27)
[2019-04-24 05:54] LABS: Anisocytosis Slight; HCT 20.6 % (34.0-46.0); MCH 34.5 pg (25.0-35.0); MCHC 32.3 g/dL (31.0-37.0); MCV 106.8 fL (80.0-100.0); Macrocytosis Marked; Mean Platelet Volume 9.4; RBC 1.93 m/uL (3.80-5.40); RDW 16.9 % (11.5-15.5)
[2019-04-24 05:59] LABS: Platelet Count 27 k/uL (150-450)
[2019-04-24] MEDS: ACETAMINOPHEN TAB 325 MG TAB PO PRN ×2 (05:59→16:58)
[2019-04-24 06:01] LABS: HGB 6.7 gm/dL (11.4-16.0)
[2019-04-24 06:24] LABS: African American GFR (CKD) >90 (>60 ml/min/1.73 sqM); Anion Gap 2 mmol/L; Blood Urea Nitrogen 15 mg/dL (7-17); Calcium 8.2 mg/dL (8.4-10.2); Carbon Dioxide 27 mmol/L (22-30); Chloride 108 mmol/L (98-107); Glucose 131 mg/dL (74-99); Non-African American GFR(CKD) >90 (>60 ml/min/1.73 sqM); Potassium 4.2 mmol/L (3.5-5.1); Sodium 137 mmol/L (137-145)
[2019-04-24 06:42] LABS: Band Neutrophils % 13 %; Basophils # (M) 0.07 k/uL (0-0.2); Neutrophils % (M) 20 %; Nucleated Red Blood Cells 2 /100 WBC (0-0); Promyelocytes # (M) 0.07 k/uL (0); Promyelocytes % 1 %; Total Cells Counted 200
[2019-04-24 06:43] LABS: Blast Cells # (M) 1.19 k/uL (0); Lymphocytes # (M) 1.12 k/uL (1.0-4.8); Monocytes # (M) 2.31 k/uL (0-1.0)
[2019-04-24 06:44] LABS: Anisocytosis (M) Present
[2019-04-24] MEDS: AMPHETAMINE PO SCH (07:59)
[2019-04-24] MEDS: DEXTROAMPHETAMINE PO SCH (07:59)
[2019-04-24] MEDS: ASCORBIC ACID 500 MG TAB PO SCH (08:04)
[2019-04-24] MEDS: PANTOPRAZOLE 40 MG TABLET PO SCH ×2 (08:04→17:04)
[2019-04-24] MEDS: MULTIVITAMINS, THERA 1 EACH TAB PO SCH (08:04)
[2019-04-24] MEDS: CITALOPRAM HYDROBROMIDE 20 MG TAB PO SCH (08:04)
[2019-04-24 14:27] VITALS: BP 110/68; RESP 18
[2019-04-24 15:52] VITALS: PULSE 73; TEMP 97.5
--- NOTE | 2019-04-24 16:28 | P.DS ---
Providers Date of admission: 04/22/19 09:22 Expected date of discharge: 04/24/19 Attending physician: Hemant Pierce Consults: 04/22/19 09:23 Consult Physician Routine Consulting Provider: Galdino Pineda Consult Reason/Comments: abnormal labs, 17% blasts Do you want consulting provider notified?: Yes Consult Physician Urgent Consulting Provider: Marshall Hope Consult Reason/Comments: chest pain r/o Do you want consulting provider notified?: Yes 04/22/19 15:55 Consult Physician Urgent Consulting Provider: Taty Garcia Consult Reason/Comments: Rhuematoid arthritis Do you want consulting provider notified?: Yes 04/22/19 20:27 Consult Physician Urgent Consulting Provider: Shira Morales Consult Reason/Comments: fever Do you want consulting provider notified?: Yes Primary care physician: Mal Mendez [facility] Course: 63-year-old female patient admitted to the hospital with bicytopenia and right knee swelling; patient was started on IV antibiotics in form of cefepime and Vanco since right knee could not be aspirated; ID was consulted which agreed with antibiotic therapy; oncology consult was done due to worsening bicytopenia primary hemoglobin and platelet count; oncology recommended bone marrow biopsy for working diagnosis of acute leukemia; patient and family agreed; post biopsy patient's hemoglobin dropped down to 6.7; she was transfused with 1 unit of packed RBCs per hematology recommendations; a shooting family requested transfer to [facility]; his management was consulted and transfers was initiated; I spoke personally with Dr. Milner who accepted patient as his priority for further evaluation by oncology service Patient Condition at Discharge: Stable Plan - Discharge Summary Discharge Rx Participant: No New Discharge Prescriptions: No Action Esomeprazole Magnesium [NexIUM] 40 mg PO BID Citalopram Hydrobromide [Citalopram HBr] 20 mg PO DAILY Multivitamins, Thera [Multivitamin] 1 tab PO DAILY Ascorbic Acid [Vitamin C] 1,000 mg PO DAILY [place]-3 Fatty Acids [[place]-3] 1,000 mg PO DAILY Niacin 500 mg PO HS Dextroamphetamine/Amphetamine [Adderall] 5 mg PO DAILY Calcium Carbonate/Vitamin D3 [Calcium 600-Vit D3 800 Caplet] 2 tab PO DAILY predniSONE [Deltasone] 20 mg PO HS predniSONE [Deltasone] 40 mg PO QAM Hydrocodone/Acetaminophen [Kenef[place] 7.5-325] 1 tab PO TID PRN PRN Reason: Pain Super B Complex W/ Biotin 1 tab PO DAILY Probiotic W/ Fiber 1 tab PO DAILY Triamcinolone 0.1% Cream [Kenalog 0.1% Cream] 1 applic TOPICAL BID PRN PRN Reason: IRRITATION Clobetasol Propionate [Temovate 0.05% Cream] 1 applic TOPICAL BID PRN PRN Reason: IRRITATION Discharge Medication List Citalopram Hydrobromide [Citalopram HBr] 20 mg PO DAILY 07/23/14 [History] Esomeprazole Magnesium [NexIUM] 40 mg PO BID 07/23/14 [History] Multivitamins, Thera [Multivitamin] 1 tab PO DAILY 06/07/15 [History] Ascorbic Acid [Vitamin C] 1,000 mg PO DAILY 04/22/19 [History] Calcium Carbonate/Vitamin D3 [Calcium 600-Vit D3 800 Caplet] 2 tab PO DAILY 04/22/19 [History] Clobetasol Propionate [Temovate 0.05% Cream] 1 applic TOPICAL BID PRN 04/22/19 [History] Dextroamphetamine/Amphetamine [Adderall] 5 mg PO DAILY 04/22/19 [History] Hydrocodone/Acetaminophen [Kenefic 7.5-325] 1 tab PO TID PRN 04/22/19 [History] Niacin 500 mg PO HS 04/22/19 [History] [place]-3 Fatty Acids [[place]-3] 1,000 mg PO DAILY 04/22/19 [History] Probiotic W/ Fiber 1 tab PO DAILY 04/22/19 [History] Super B Complex W/ Biotin 1 tab PO DAILY 04/22/19 [History] Triamcinolone 0.1% Cream [Kenalog 0.1% Cream] 1 applic TOPICAL BID PRN 04/22/19 [History] predniSONE [Deltasone] 20 mg PO HS 04/22/19 [History] predniSONE [Deltasone] 40 mg PO QAM 04/22/19 [History] Follow up Appointment(s)/Referral(s): Mal Mendez DO [Primary Care Provider] - 1-2 days Activity/Diet/Wound Care/Special Instructions: Cardio clear.
--- NOTE | 2019-04-25 22:45 | P.PN ---
Subjective Progress Note Date: 04/25/19 The patient feels generally stronger since coming to the hospital and receiving IV hydration. No obvious bleeding. She continues to have knee swelling with some improvement since intra-articular injection. No fevers or chills. Objective - Vital Signs Vital signs: Vital Signs Temp 97.5 F L 04/24/19 15:00 Pulse 73 04/24/19 15:00 Resp 18 04/24/19 15:00 BP 110/68 04/24/19 15:00 Pulse Ox 100 04/24/19 15:00 - Constitutional General appearance: Present: no acute distress - EENT Eyes: Present: EOMI ENT: Present: hearing grossly normal, normal oropharynx - Respiratory Respiratory: bilateral: CTA - Cardiovascular Rhythm: regular Heart sounds: normal: S1, S2 - Gastrointestinal General gastrointestinal: Present: normal bowel sounds, soft - Neurologic Neurologic: Present: CNII-XII intact - Musculoskeletal Musculoskeletal Comment(s): rt knee swelling, with decreased ROM, mild overlying warmth - Psychiatric Psychiatric: Present: A&O x's 3, appropriate affect - Labs CBC & Chem 7: 04/24/19 05:17 04/24/19 05:17 Labs: Microbiology - Last 24 Hours (Table) 04/22/19 19:53 Blood Culture - Preliminary Blood No Growth after 48 hours Assessment and Plan (1) Bicytopenia Narrative/Plan: Counts are reviewed. Hemoglobin is less than 7 today and 1 unit of irradiated RBCs will be ordered. Continue to monitor and transfuse as needed for hemoglobin less than 7 and platelets less than 10. Status: Acute Code(s): D75.89 - OTHER SPECIFIED DISEASES OF BLOOD AND BLOOD- FORMING ORGANS SNOMED Code(s): 93415346 (2) Blood dyscrasia Narrative/Plan: The patient is status post bone marrow aspiration biopsy with results pending at this time. A possible etiology is based on findings so far, and indications were again discussed in detail. She was advised that the main concern at this time is for acute myeloid leukemia. Other aggressive process such as myelofibrosis or myelodysplasia and transformation are also possibilities. We will need to confirmation of pathology start treatment. Treatment protocols for acute myeloid leukemia were discussed. The patient has had an echocardiogram done in preparation of the same which shows normal ejection fraction The patient and her family want to be evaluated the [facility]. They were advised that most likely initial treatment will be a fairly standard regimen. Based on the request of the patient and her family, consult request to the [facility] has been initiated. We discussed that if in hospital transfer is not accepted, then another option could be an outpatient peripheral, as long as the patient is stable and can be monitored outpatient with transfusion support They had multiple questions which were answered in detail Status: Acute Code(s): D75.9 - DISEASE OF BLOOD AND BLOOD-FORMING ORGANS, UNSPECIFIED SNOMED Code(s): 071919172 (3) Inflammation of joint of right knee Narrative/Plan: There is mild improvement with intra-articular injection. Rheumatology following. Uric acid level is normal, but that would not rule out an acute attack Status: Acute Code(s): M13.161 - MONOARTHRITIS, NOT ELSEWHERE CLASSIFIED, RIGHT KNEE SNOMED Code(s): 465914766 (4) SIRS (systemic inflammatory response syndrome) Narrative/Plan: Hemodynamics, and symptoms are improved with IV hydration. Cultures negative so far. The patient is being covered with broad-spectrum antibiotics. At this time, inflammation due to her underlying blood dyscrasia is felt to be more likely Status: Acute Code(s): R65.10 - SIRS OF NON-INFECTIOUS ORIGIN W/O ACUTE ORGAN DYSFUNCTION SNOMED Code(s): 985959231 Plan: Case was discussed in detail with the admitting service
== END 2019-04-24 19:06 | disposition short-term general hospital (02) | DRG 835 ==
LOC: EC 06:21 → 3SCARD 09:22 → 4SSUR 04-23 19:46
PROVIDERS: ADMIT Hospitalist; ATTEND Hospitalist
PROC: 07DR3ZX Extraction of Iliac Bone Marrow, Percutaneous Approach, Diagnostic (ICD-10-PCS; principal; 2019-04-23 07:30)
PROC: 30230N1 Transfusion of Nonautologous Red Blood Cells into Peripheral Vein, Open Approach (ICD-10-PCS; 2019-04-24)
DX: C95.00 Acute leukemia of unspecified cell type not having achieved remission (principal); R65.10 Systemic inflammatory response syndrome (SIRS) of non-infectious origin without acute organ dysfunction; D69.6 Thrombocytopenia, unspecified; I95.9 Hypotension, unspecified; D64.9 Anemia, unspecified; F32.9 Major depressive disorder, single episode, unspecified; G47.419 Narcolepsy without cataplexy; G89.29 Other chronic pain; K21.9 Gastro-esophageal reflux disease without esophagitis; K57.90 Diverticulosis of intestine, part unspecified, without perforation or abscess without bleeding; K59.00 Constipation, unspecified; M17.11 Unilateral primary osteoarthritis, right knee; R07.89 Other chest pain; M06.9 Rheumatoid arthritis, unspecified; I25.10 Atherosclerotic heart disease of native coronary artery without angina pectoris; Z79.899 Other long term (current) drug therapy; Z79.52 Long term (current) use of systemic steroids; Z98.51 Tubal ligation status; Z86.010 Personal history of colon polyps; Z82.5 Family history of asthma and other chronic lower respiratory diseases
CPT/HCPCS: 36415; 38222; 71046; 71275; 80048; 80053; 80061; 80202; 81003; 82272; 83605; 83690; 83735; 83880; 84484; 84550; 85025; 85045; 85379; 85610; 85730; 86850; 86900; 86901; 86920; 87040; 93005; 93306; 96361; 96374; 99285